=== PATIENT | female | born 1985 | race Hispanic/Latino ===

== ENCOUNTER 2017-08-07 22:35 | Emergency (ER) | payer OTHER ==
[2017-08-07 23:36] LABS: Basophils % (Auto) 0.7 % (0.0-1.8); Eosinophils # (Auto) 0.5 K/mm3 (0.0-0.4); Eosinophils % (Auto) 8.9 % (0.0-4.3); Hematocrit 47.5 % (30.3-42.9); Lymphocytes # (Auto) 1.7 K/mm3 (1.2-5.4); Lymphocytes % (Auto) 31.4 % (13.4-35.0); Mean Corpuscular HGB Conc 34 % (30-34); Mean Corpuscular Hemoglobin 30 pg (28-32); Mean Corpuscular Volume 89 fl (79-97); Monocytes # (Auto) 0.5 K/mm3 (0.0-0.8); Monocytes % (Auto) 8.6 % (0.0-7.3); Platelet Count 128 K/mm3 (140-440); Red Blood Count 5.34 M/mm3 (3.65-5.03); Red Cell Distribution Width 13.4 % (13.2-15.2)
[2017-08-08 00:04] LABS: BUN/Creatinine Ratio 8; Blood Urea Nitrogen 4 mg/dL (7-17); Calcium 8.8 mg/dL (8.4-10.2); Hemolysis Index 29
[2017-08-08] MEDS ORDERED: NACL 0.9% 1000 ML 1,000 ML IV ONE (07:03)
[2017-08-08] MEDS ORDERED: ZOFRAN IV ONE (07:03)
--- NOTE | 2017-08-08 07:06 | Emergency Department Report ---
ED Abdominal Pain HPI - General Chief Complaint: Nausea/Vomiting/Diarrhea Stated Complaint: VOMITTING NAUSEA Time Seen by Provider: 08/08/17 06:59 Source: patient Mode of arrival: Ambulatory Limitations: No Limitations - History of Present Illness Initial Comments: Patient is 32 years old female with no significant past medical history. Patient presented to the ER complaining off nausea vomiting, unable to keep anything down for the last 2-3 days. Patient stated that she had mild left lower quadrant abdominal pain. Patient denied any fever or diarrhea. MD Complaint: abdominal pain Location: LLQ Radiation: none Migration to: no migration Severity: mild Severity scale (0 -10): 2 Quality: cramping Consistency: intermittent Associated Symptoms: nausea, vomiting. denies: diarrhea, chills, constipation, dysuria - Related Data Allergies Allergy/AdvReac Type Severity Reaction Status Date / Time Sulfa (Sulfonamide Allergy Rash Verified 08/07/17 23:15 Antibiotics) ED Review of Systems ROS: Stated complaint: VOMITTING NAUSEA Other details as noted in HPI Comment: All other systems reviewed and negative Constitutional: denies: chills, fever Respiratory: denies: cough, orthopnea, shortness of breath, SOB with exertion Cardiovascular: denies: chest pain, palpitations, dyspnea on exertion, edema Gastrointestinal: abdominal pain, nausea, vomiting. denies: diarrhea, constipation, hematemesis, melena, hematochezia Genitourinary: urgency, dysuria, frequency. denies: discharge Musculoskeletal: denies: back pain ED Past Medical Hx - Past Medical History Previous Medical History?: No - Surgical History Past Surgical History?: Yes Additional Surgical History: x2. tonsillectomy - Social History Smoking Status: Current Every Day Smoker Substance Use Type: Methamphetamines ED Physical Exam - General Limitations: No Limitations General appearance: alert, in no apparent distress - Head Head exam: Present: atraumatic, normocephalic, normal inspection - Eye Eye exam: Present: normal appearance - ENT ENT exam: Present: normal exam, normal orophraynx, mucous membranes dry - Neck Neck exam: Present: normal inspection, full ROM. Absent: tenderness, meningismus, lymphadenopathy, thyromegaly - Respiratory Respiratory exam: Present: normal lung sounds bilaterally. Absent: respiratory distress, wheezes, rales, rhonchi, chest wall tenderness, accessory muscle use, decreased breath sounds, prolonged expiratory - Cardiovascular Cardiovascular Exam: Present: regular rate, normal rhythm, normal heart sounds - GI/Abdominal GI/Abdominal exam: Present: soft, normal bowel sounds. Absent: distended, tenderness, guarding, rebound, rigid, organomegaly, mass, bruit, pulsatile mass - Extremities Exam Extremities exam: Present: normal inspection, full ROM, normal capillary refill - Back Exam Back exam: Present: normal inspection, full ROM. Absent: tenderness, CVA tenderness (R), CVA tenderness (L), muscle spasm, paraspinal tenderness, vertebral tenderness - Neurological Exam Neurological exam: Present: alert, oriented X3, CN II-XII intact, normal gait - Skin Skin exam: Present: warm, dry, intact ED Course Vital Signs 08/07/17 08/08/17 08/08/17 22:40 03:00 03:10 Temperature 98.3 F 98.4 F Pulse Rate 94 H 73 Respiratory 18 18 Rate Blood Pressure 129/97 126/82 Blood Pressure 128/86 [Left] O2 Sat by Pulse 95 99 99 Oximetry 08/08/17 08/08/17 08/08/17 04:00 05:00 06:00 Temperature Pulse Rate Respiratory Rate Blood Pressure 115/79 119/82 113/78 Blood Pressure [Left] O2 Sat by Pulse 98 98 99 Oximetry ED Medical Decision Making - Lab Data Result diagrams: 08/07/17 23:19 08/07/17 23:19 Critical care attestation.: If time is entered above; I have spent that time in minutes in the direct care of this critically ill patient, excluding procedure time. ED Disposition Clinical Impression: Vomiting, UTI (urinary tract infection), Dehydration, Substance abuse Disposition: -01 TO HOME OR SELFCARE Is pt being admited?: No Condition: Stable Instructions: Urinary Tract Infection in Women (ED), Methamphetamine Abuse (ED) Referrals: PRIMARY CARE, [Primary Care Provider] - 3-5 Days
[2017-08-08 08:25] LABS: Bacteria,Urine 1+ /HPF (Negative); Benzodiazepines Screen,Urine PRESUMPTIVE NEGATIVE; Bilirubin,Urine NEG (Negative); Blood,Urine NEG (Negative); Cannabinoid Screen,Urine PRESUMPTIVE NEGATIVE; Cocaine Screen,Urine PRESUMPTIVE NEGATIVE; Color,Urine Amber (Yellow); Methadone Screen,Urine PRESUMPTIVE NEGATIVE; Mucus,Urine FEW /HPF; Opiate Screen,Urine PRESUMPTIVE NEGATIVE; Protein,Urine <15 mg/dL mg/dL (Negative)
[2017-08-08] MEDS ORDERED: REGLAN IV ONE (08:41)
[2017-08-08] MEDS ORDERED: REGLAN IV PRN (08:41)
[2017-08-08 08:49] LABS: Amphetamine Screen,Urine PRESUMPTIVE POSITIVE
[2017-08-08 10:10] VITALS: BP 109/68
== END 2017-08-08 10:10 | disposition home or self-care (01) ==
LOC: ED 22:35
DX: N39.0 Urinary tract infection, site not specified (principal); R11.10 Vomiting, unspecified; F19.10 Other psychoactive substance abuse, uncomplicated; F17.200 Nicotine dependence, unspecified, uncomplicated
CPT/HCPCS: 36415; 80048; 80307; 81001; 84703; 85025; 96361; 96374; 96375; 99283; J2405; J2765; J7030

== ENCOUNTER 2017-08-08 17:53 | Emergency (ER) | payer SELFPAY ==
[2017-08-08 18:24] VITALS: BP 114/80
[2017-08-08] MEDS ORDERED: NACL 0.9% 1000 ML 1,000 ML ONE (19:21)
[2017-08-08] MEDS ORDERED: NACL 0.9% 1000 ML 1,000 ML IV ONE (19:25)
== END 2017-08-08 19:45 | disposition left against medical advice (07) ==
LOC: ED 17:53
DX: R10.9 Unspecified abdominal pain (principal); R11.2 Nausea with vomiting, unspecified; Z87.891 Personal history of nicotine dependence; Z53.21 Procedure and treatment not carried out due to patient leaving prior to being seen by health care provider
CPT/HCPCS: J7030

== ENCOUNTER 2017-08-13 22:37 | Inpatient (IN) | payer OTHER ==
[2017-08-13] MEDS ORDERED: ASPIRIN PO ONE (22:52)
[2017-08-13 23:20] LABS: Basophils # (Auto) 0.1 K/mm3 (0.0-0.1); Basophils % (Auto) 1.2 % (0.0-1.8); Eosinophils # (Auto) 0.3 K/mm3 (0.0-0.4); Eosinophils % (Auto) 4.5 % (0.0-4.3); Hematocrit 44.5 % (30.3-42.9); Hemoglobin 15.4 gm/dl (10.1-14.3); Lymphocytes # (Auto) 2.6 K/mm3 (1.2-5.4); Lymphocytes % (Auto) 40.3 % (13.4-35.0); Mean Corpuscular HGB Conc 35 % (30-34); Mean Corpuscular Hemoglobin 30 pg (28-32); Mean Corpuscular Volume 85 fl (79-97); Monocytes # (Auto) 0.6 K/mm3 (0.0-0.8); Monocytes % (Auto) 9.3 % (0.0-7.3); Platelet Count 188 K/mm3 (140-440); Red Blood Count 5.21 M/mm3 (3.65-5.03)
[2017-08-13 23:51] LABS: BUN/Creatinine Ratio 6; Blood Urea Nitrogen 3 mg/dL (7-17); Hemolysis Index 11
[2017-08-14] MEDS ORDERED: NACL 0.9% 1000 ML 1,000 ML IV ONE (01:55)
[2017-08-14] MEDS ORDERED: ZOFRAN IV ONE ×2 (01:55→04:56)
[2017-08-14] MEDS ORDERED: TORADOL IV ONE (01:55)
[2017-08-14] MEDS ORDERED: MORPHINE IV ONE ×2 (01:55→04:54)
[2017-08-14] MEDS ORDERED: PEPCID IV ONE (01:55)
--- NOTE | 2017-08-14 02:27 | Emergency Department Report ---
ED N/V/D HPI - General Chief complaint: Chest Pain Stated complaint: N/V; CP Time Seen by Provider: 08/14/17 01:54 Source: patient, EMS, old records reviewed Mode of arrival: Ambulatory Limitations: No Limitations - History of Present Illness Initial comments: 32-year-old female with a past medical history of "kidney problems" and previous 2 presents to the hospital with complaints of nausea, vomiting, by mouth tolerance, and abdominal pain. Patient was seen and evaluated here on August 08 same symptoms. She was discharged with a diagnosis UTI and placed on Cipro and Zofran. No CT imaging performed. UDS was positive for amphetamines. Patient filled the antibiotic but was unable to afford the Zofran. Patient tried to take the Cipro but continued to vomit and was unable to keep these down. Patient now complains of headache, left-sided chest discomfort, weakness and fatigue. No fever, diarrhea, melena, or hematochezia reported. Pain overall rate is 9/10 in intensity and pain worse with palpation. Patient admits to occasional methamphetamine use but denies alcohol use or history of hepatitis. Last IV meth use was several months ago and pt denies sharing needles - Related Data Previous Rx's Medication Instructions Recorded Last Taken Type Ciprofloxacin HCl [Ciprofloxacin 500 mg PO Q12H #14 tab 08/08/17 Unknown Rx TAB] Ondansetron [Zofran Odt] 4 mg PO Q8HR PRN #14 tab.rapdis 08/08/17 Unknown Rx Allergies Allergy/AdvReac Type Severity Reaction Status Date / Time Sulfa (Sulfonamide Allergy Rash Verified 08/07/17 23:15 Antibiotics) ED Review of Systems ROS: Stated complaint: N/V; CP Other details as noted in HPI Comment: All other systems reviewed and negative ED Past Medical Hx - Past Medical History Previous Medical History?: Yes Additional medical history: kidney pblms - Surgical History Past Surgical History?: Yes Additional Surgical History: x2. tonsillectomy - Social History Smoking Status: Current Every Day Smoker Substance Use Type: None - Medications Home Medications: Home Medications Medication Instructions Recorded Confirmed Last Taken Type Ciprofloxacin HCl [Ciprofloxacin 500 mg PO Q12H #14 tab 08/08/17 Unknown Rx TAB] Ondansetron [Zofran Odt] 4 mg PO Q8HR PRN #14 tab.rapdis 08/08/17 Unknown Rx ED Physical Exam - General Limitations: No Limitations - Other Other exam information: General: No limitations, patient is alert in no acute distress Head exam: Atraumatic, normocephalic Eyes exam: Normal appearance, pupils equal reactive to light,mildly icteric sclera ENT: Moist mucous membranes Neck exam: Normal inspection, full range of motion, no meningismus nontender Respiratory exam: Clear to auscultation bilateral, no wheezes, rales, crackles Cardiovascular: Normal rate and rhythm, normal heart sounds Abdomen: Soft, nondistended, right upper quadrant, epigastric, suprapubic tenderness on palpation. Normal bowel sounds. No rebound or guarding Extremity: Full range of motion normal inspection no deformity Back: Normal Inspection, full range of motion, no tenderness Neurologic: Alert, oriented x3, cranial nerves intact, no motor or sensory deficit Psychiatric: normal affect, normal mood Skin: Warm, dry, intact ED Course Vital Signs 08/13/17 08/14/17 08/14/17 22:37 01:38 03:24 Temperature 99.3 F 99.1 F Pulse Rate 100 H 84 Respiratory 14 12 16 Rate Blood Pressure 122/86 Blood Pressure 105/63 [Right] O2 Sat by Pulse 98 97 98 Oximetry - Consultations Consultation #1: 08/14/17 04:47 case d/w Dr Soniya pantoja (GI) will consult. ED Medical Decision Making - Lab Data Result diagrams: 08/13/17 22:58 08/13/17 22:58 Lab Results 08/13/17 08/13/17 08/13/17 Range/Units 22:58 22:58 22:58 WBC 6.5 (4.5-11.0) K/mm3 RBC 5.21 H (3.65-5.03) M/mm3 Hgb 15.4 H (10.1-14.3) gm/dl Hct 44.5 H (30.3-42.9) % MCV 85 (79-97) fl MCH 30 (28-32) pg MCHC 35 H (30-34) % RDW 14.0 (13.2-15.2) % Plt Count 188 (140-440) K/mm3 Lymph % (Auto) 40.3 H (13.4-35.0) % [place] % (Auto) 9.3 H (0.0-7.3) % Eos % (Auto) 4.5 H (0.0-4.3) % Baso % (Auto) 1.2 (0.0-1.8) % Lymph # 2.6 (1.2-5.4) K/mm3 [place] # 0.6 (0.0-0.8) K/mm3 Eos # 0.3 (0.0-0.4) K/mm3 Baso # 0.1 (0.0-0.1) K/mm3 Seg Neutrophils % 44.7 (40.0-70.0) % Seg Neutrophils # 2.9 (1.8-7.7) K/mm3 Sodium 133 L (137-145) mmol/L Potassium 3.5 L (3.6-5.0) mmol/L Chloride 93.7 L (98-107) mmol/L Carbon Dioxide 27 (22-30) mmol/L Anion Gap 16 mmol/L BUN 3 L (7-17) mg/dL Creatinine 0.5 L (0.7-1.2) mg/dL Estimated GFR > 60 ml/min BUN/Creatinine Ratio 6 % Glucose 106 H (65-100) mg/dL Calcium 9.0 (8.4-10.2) mg/dL Magnesium (1.7-2.3) mg/dL Total Bilirubin (0.1-1.2) mg/dL Direct Bilirubin (0-0.2) mg/dL Indirect Bilirubin mg/dL AST (5-40) units/L ALT (7-56) units/L Alkaline Phosphatase (35-129) units/L Troponin T < 0.010 (0.00-0.029) ng/mL Total Protein (6.3-8.2) g/dL Albumin (3.9-5) g/dL Albumin/Globulin Ratio % Lipase (13-60) units/L HCG, Qual Negative (Negative) Urine Color (Yellow) Urine Turbidity (Clear) Urine pH (5.0-7.0) Ur Specific [place] (1.003-1.030) Urine Protein (Negative) mg/dL Urine Glucose (UA) (Negative) mg/dL Urine Ketones (Negative) mg/dL Urine Blood (Negative) Urine Nitrite (Negative) Ur Reducing Substances Urine Bilirubin (Negative) Urine Ictotest (Negative) Urine Urobilinogen (<2.0) mg/dL Ur Leukocyte Esterase (Negative) Urine WBC (Auto) (0.0-6.0) /HPF Urine RBC (Auto) (0.0-6.0) /HPF U Epithel Cells (Auto) (0-13.0) /HPF Urine Mucus /HPF Hepatitis A IgM Ab (NonReactive) Hep Bs Antigen (Negative) Hep B Core IgM Ab (NonReactive) Hepatitis C Antibody (NonReactive) 08/14/17 08/14/17 08/14/17 Range/Units 01:30 01:30 01:30 WBC (4.5-11.0) K/mm3 RBC (3.65-5.03) M/mm3 Hgb (10.1-14.3) gm/dl Hct (30.3-42.9) % MCV (79-97) fl MCH (28-32) pg MCHC (30-34) % RDW (13.2-15.2) % Plt Count (140-440) K/mm3 Lymph % (Auto) (13.4-35.0) % [place] % (Auto) (0.0-7.3) % Eos % (Auto) (0.0-4.3) % Baso % (Auto) (0.0-1.8) % Lymph # (1.2-5.4) K/mm3 [place] # (0.0-0.8) K/mm3 Eos # (0.0-0.4) K/mm3 Baso # (0.0-0.1) K/mm3 Seg Neutrophils % (40.0-70.0) % Seg Neutrophils # (1.8-7.7) K/mm3 Sodium (137-145) mmol/L Potassium (3.6-5.0) mmol/L Chloride (98-107) mmol/L Carbon Dioxide (22-30) mmol/L Anion Gap mmol/L BUN (7-17) mg/dL Creatinine (0.7-1.2) mg/dL Estimated GFR ml/min BUN/Creatinine Ratio % Glucose (65-100) mg/dL Calcium (8.4-10.2) mg/dL Magnesium 1.90 (1.7-2.3) mg/dL Total Bilirubin 8.20 H (0.1-1.2) mg/dL Direct Bilirubin 6.3 H (0-0.2) mg/dL Indirect Bilirubin 1.9 mg/dL AST 574 H (5-40) units/L ALT 908 H (7-56) units/L Alkaline Phosphatase 225 H (35-129) units/L Troponin T (0.00-0.029) ng/mL Total Protein 5.7 L (6.3-8.2) g/dL Albumin 3.5 L (3.9-5) g/dL Albumin/Globulin Ratio 1.6 % Lipase 14 (13-60) units/L HCG, Qual (Negative) Urine Color (Yellow) Urine Turbidity (Clear) Urine pH (5.0-7.0) Ur Specific [place] (1.003-1.030) Urine Protein (Negative) mg/dL Urine Glucose (UA) (Negative) mg/dL Urine Ketones (Negative) mg/dL Urine Blood (Negative) Urine Nitrite (Negative) Ur Reducing Substances Urine Bilirubin (Negative) Urine Ictotest (Negative) Urine Urobilinogen (<2.0) mg/dL Ur Leukocyte Esterase (Negative) Urine WBC (Auto) (0.0-6.0) /HPF Urine RBC (Auto) (0.0-6.0) /HPF U Epithel Cells (Auto) (0-13.0) /HPF Urine Mucus /HPF Hepatitis A IgM Ab Non-reactive (NonReactive) Hep Bs Antigen Non-reactive (Negative) Hep B Core IgM Ab Non-reactive (NonReactive) Hepatitis C Antibody Reactive A (NonReactive) 08/14/17 08/14/17 Range/Units 01:47 02:22 WBC (4.5-11.0) K/mm3 RBC (3.65-5.03) M/mm3 Hgb (10.1-14.3) gm/dl Hct (30.3-42.9) % MCV (79-97) fl MCH (28-32) pg MCHC (30-34) % RDW (13.2-15.2) % Plt Count (140-440) K/mm3 Lymph % (Auto) (13.4-35.0) % [place] % (Auto) (0.0-7.3) % Eos % (Auto) (0.0-4.3) % Baso % (Auto) (0.0-1.8) % Lymph # (1.2-5.4) K/mm3 [place] # (0.0-0.8) K/mm3 Eos # (0.0-0.4) K/mm3 Baso # (0.0-0.1) K/mm3 Seg Neutrophils % (40.0-70.0) % Seg Neutrophils # (1.8-7.7) K/mm3 Sodium (137-145) mmol/L Potassium (3.6-5.0) mmol/L Chloride (98-107) mmol/L Carbon Dioxide (22-30) mmol/L Anion Gap mmol/L BUN (7-17) mg/dL Creatinine (0.7-1.2) mg/dL Estimated GFR ml/min BUN/Creatinine Ratio % Glucose (65-100) mg/dL Calcium (8.4-10.2) mg/dL Magnesium (1.7-2.3) mg/dL Total Bilirubin (0.1-1.2) mg/dL Direct Bilirubin (0-0.2) mg/dL Indirect Bilirubin mg/dL AST (5-40) units/L ALT (7-56) units/L Alkaline Phosphatase (35-129) units/L Troponin T < 0.010 (0.00-0.029) ng/mL Total Protein (6.3-8.2) g/dL Albumin (3.9-5) g/dL Albumin/Globulin Ratio % Lipase (13-60) units/L HCG, Qual (Negative) Urine Color [place] (Yellow) Urine Turbidity Clear (Clear) Urine pH 5.0 (5.0-7.0) Ur Specific [place] 1.025 (1.003-1.030) Urine Protein 30 mg/dl (Negative) mg/dL Urine Glucose (UA) Neg (Negative) mg/dL Urine Ketones Neg (Negative) mg/dL Urine Blood Sm (Negative) Urine Nitrite Neg (Negative) Ur Reducing Substances Not Reportable Urine Bilirubin Mod (Negative) Urine Ictotest Positive (Negative) Urine Urobilinogen 4.0 (<2.0) mg/dL Ur Leukocyte Esterase Neg (Negative) Urine WBC (Auto) 4.0 (0.0-6.0) /HPF Urine RBC (Auto) 2.0 (0.0-6.0) /HPF U Epithel Cells (Auto) 9.0 (0-13.0) /HPF Urine Mucus 3+ /HPF Hepatitis A IgM Ab (NonReactive) Hep Bs Antigen (Negative) Hep B Core IgM Ab (NonReactive) Hepatitis C Antibody (NonReactive) - EKG Data -: EKG Interpreted by Me EKG shows normal: sinus rhythm, axis (qrs 65), QRS complexes (qrs 81), ST-T waves (no stemi/t inv) Rate: normal (81) - EKG Data When compared to previous EKG there are: previous EKG unavailable - Radiology Data Radiology results: report reviewed CT abdomen and pelvis IV contrast: No acute process in the abdomen and pelvis. Normal appendix. Uncomplicated sigmoid diverticulosis. - Medical Decision Making lft elevation, + hepatitis C (new diagnosis) History of IV drug abuse but denies sharing needles CT abdomen and pelvis unremarkable UA negative for infection Patient treated symptomatically with morphine, Zofran, and saline for hydration Dr. Pantoja GI consulted Mild hypokalemia Decreased compared to previous like secondary to vomiting IV KCl 20 mEq initiated Hospitalist informed of admission - Differential Diagnosis UTI, GERD, gastritis, gastroenteritis, biliary colic, dehydration, appendic Critical Care Time: No Critical care attestation.: If time is entered above; I have spent that time in minutes in the direct care of this critically ill patient, excluding procedure time. ED Disposition Clinical Impression: Elevated LFTs, Vomiting, Abdominal pain, Hepatitis C, Methamphetamine abuse, Hypokalemia Disposition: -09 OP ADMIT IP TO THIS HOSP Is pt being admited?: Yes Condition: Stable Time of Disposition: 04:48 (Dr Lino/hosp)
[2017-08-14 02:56] LABS: Albumin 3.5 g/dL (3.9-5); Bilirubin,Direct 6.3 mg/dL (0-0.2)
[2017-08-14 03:01] LABS: Mucus,Urine 3+ /HPF
[2017-08-14 03:03] LABS: Bilirubin,Urine MOD (Negative); Blood,Urine SM (Negative); Color,Urine Amber (Yellow)
[2017-08-14 03:11] LABS: Ictotest,Urine Positive (Negative)
[2017-08-14 04:03] LABS: Hepatitis A Antibody IgM Non-Reactive (NonReactive); Hepatitis B Core IgM Non-Reactive (NonReactive); Hepatitis B Surface Antigen Non-Reactive (Negative); Hepatitis C Virus Antibody Reactive (NonReactive)
--- NOTE | 2017-08-14 04:21 | Cat Scan Report ---
FINAL REPORT EXAM: CT ABDOMEN PELVIS W CON HISTORY: n,v,abd pain TECHNIQUE: Routine axial imaging was obtained of the abdomen and pelvis following the intravenous injection of 100 cc of Omnipaque 300. Delayed imaging was obtained through the kidneys ureters and bladder. Sagittal and coronal reconstructions were reviewed. FINDINGS: The lung bases reveal minimal dependent atelectasis in both lower lobes. Pleural fluid is not seen. The gallbladder is contracted. The liver, biliary tree, pancreas, spleen, and adrenal glands appear normal. The kidneys enhance normally. There is no evidence of hydronephrosis. The abdominal aorta is normal in caliber. The vascular structures enhance normally. The bowel loops are normal in caliber and course. The appendix is not enlarged. There is no evidence of free fluid or adenopathy. In the pelvis there are multiple uncomplicated sigmoid diverticula. The uterus and bladder appear normal. The skeletal structures are well-maintained IMPRESSION: No acute process in the abdomen and pelvis. Normal appendix. Uncomplicated sigmoid diverticulosis.
[2017-08-14] MEDS ORDERED: NACL 0.9% 1000 ML 1,000 ML ONE (06:02)
[2017-08-14] MEDS: KCL 10MEQ/100ML 10 MEQ/100 ML BAG IV SCH ×2 (06:15→08:06)
--- NOTE | 2017-08-14 09:02 | History and Physical Report ---
History of Present Illness Date of examination: 08/14/17 Date of admission: 08/14/17 07:10 Chief complaint: Nausea and vomiting History of present illness: 32-year-old female with past medical history significant for recurrent UTI, depression, since presented to the emergency department complaining of nausea and recurrent vomiting for one week. She is also complaining periumbilical abdominal pain, pressure-like, 7 out of 10, no alleviating or aggravating factors. Patient was not eating because she also had nausea and vomiting. She is also complaining of left-sided substernal chest pain, 7 out of 10 in intensity, sharp, piercing there was no radiation, associated with palpitation, no shortness of breath. REVIEW OF SYSTEMS: GENERAL: no weight change, no fatigue, no fever HEAD: no head ache EYES: no blurry vision, no acute visual loss EARS: no hearing loss, no discharge, no earache NOSE: no stuffiness, no sneezing, no discharge MOUTH, THROAT AND NECK: no bleeding gums, no sore throat, no swollen neck CARDIAC: no palpitations, no dyspnea on exertion, no orthopnea, no PND, no edema , no chest pain RESPIRATORY: no shortness of breath, no wheeze, no cough, no sputum, no hemoptysis, no asthma GI: As stated in the HPI. URINARY: Itching around the genital area. MUSCULOSKELETAL: no muscle weakness, no pain, no joint stiffness NEUROLOGIC: no loss of sensation/numbness, no tingling, no tremors, no weakness/ paralysis HEMATOLOGIC: no anemia, no easy bruising SKIN: no rashes ENDOCRINE: no heat/cold intolerance, no polyuria, no polydipsia, no thyroid problems, no diabetes PSYCHIATRIC: no anxiety, no depression, no suicidal ideations Past History Past Medical History: other (depression, recurrent UTI) Past Surgical History: , tonsillectomy, Other (tubal ligation) Social history: IV drug use (amphetamine, inject and snort). denies: smoking, alcohol abuse, prescription drug abuse Family history: no significant family history Medications and Allergies Allergies Allergy/AdvReac Type Severity Reaction Status Date / Time Sulfa (Sulfonamide Allergy Rash Verified 08/07/17 23:15 Antibiotics) Home Medications Medication Instructions Recorded Confirmed Last Taken Type Ciprofloxacin HCl [Ciprofloxacin 500 mg PO Q12H #14 tab 08/08/17 Unknown Rx TAB] Ondansetron [Zofran Odt] 4 mg PO Q8HR PRN #14 tab.rapdis 08/08/17 Unknown Rx Active Meds: Active Medications Heparin Sodium (Porcine) (Heparin) 5,000 unit SUB-Q Q12HR CHONG Exam - Physical Exam Narrative exam: Not in cardiopulmonary distress. The patient appeared well nourished and normally developed. Vital signs as documented. Head exam is unremarkable. No scleral icterus . Neck is without jugular venous distension, thyromegaly, or carotid bruits. Lungs are clear to auscultation. Cardiac exam reveals regular rate and Rhythm. First and second heart sounds normal. No murmurs, rubs or gallops. Abdominal exam reveals normal bowel sounds, no masses, no organomegaly and no aortic enlargement. Extremities are nonedematous and both femoral and pedal pulses are normal. WEB KNITTER: Alert and oriented 3. No focal weakness. - Constitutional Vitals: Temp Pulse Resp BP Pulse Ox 97.3 F L 55 L 19 96/52 99 08/14/17 08:48 08/14/17 08:48 08/14/17 08:48 08/14/17 08:48 08/14/17 08:48 Results - Labs CBC & Chem 7: 08/13/17 22:58 08/13/17 22:58 Labs: Laboratory Last Values WBC 6.5 K/mm3 (4.5-11.0) 08/13/17 22:58 RBC 5.21 M/mm3 (3.65-5.03) H 08/13/17 22:58 Hgb 15.4 gm/dl (10.1-14.3) H 08/13/17 22:58 Hct 44.5 % (30.3-42.9) H 08/13/17 22:58 MCV 85 fl (79-97) 08/13/17 22:58 MCH 30 pg (28-32) 08/13/17 22:58 MCHC 35 % (30-34) H 08/13/17 22:58 RDW 14.0 % (13.2-15.2) 08/13/17 22:58 Plt Count 188 K/mm3 (140-440) 08/13/17 22:58 Lymph % (Auto) 40.3 % (13.4-35.0) H 08/13/17 22:58 [place] % (Auto) 9.3 % (0.0-7.3) H 08/13/17 22:58 Eos % (Auto) 4.5 % (0.0-4.3) H 08/13/17 22:58 Baso % (Auto) 1.2 % (0.0-1.8) 08/13/17 22:58 Lymph # 2.6 K/mm3 (1.2-5.4) 08/13/17 22:58 [place] # 0.6 K/mm3 (0.0-0.8) 08/13/17 22:58 Eos # 0.3 K/mm3 (0.0-0.4) 08/13/17 22:58 Baso # 0.1 K/mm3 (0.0-0.1) 08/13/17 22:58 Seg Neutrophils % 44.7 % (40.0-70.0) 08/13/17 22:58 Seg Neutrophils # 2.9 K/mm3 (1.8-7.7) 08/13/17 22:58 Sodium 133 mmol/L (137-145) L 08/13/17 22:58 Potassium 3.5 mmol/L (3.6-5.0) L 08/13/17 22:58 Chloride 93.7 mmol/L (98-107) L 08/13/17 22:58 Carbon Dioxide 27 mmol/L (22-30) 08/13/17 22:58 Anion Gap 16 mmol/L 08/13/17 22:58 BUN 3 mg/dL (7-17) L 08/13/17 22:58 Creatinine 0.5 mg/dL (0.7-1.2) L 08/13/17 22:58 Estimated GFR > 60 ml/min 08/13/17 22:58 BUN/Creatinine Ratio 6 % 08/13/17 22:58 Glucose 106 mg/dL (65-100) H 08/13/17 22:58 Calcium 9.0 mg/dL (8.4-10.2) 08/13/17 22:58 Magnesium 1.90 mg/dL (1.7-2.3) 08/14/17 01:30 Total Bilirubin 8.20 mg/dL (0.1-1.2) H 08/14/17 01:30 Direct Bilirubin 6.3 mg/dL (0-0.2) H 08/14/17 01:30 Indirect Bilirubin 1.9 mg/dL 08/14/17 01:30 AST 574 units/L (5-40) H 08/14/17 01:30 ALT 908 units/L (7-56) H 08/14/17 01:30 Alkaline Phosphatase 225 units/L (35-129) H 08/14/17 01:30 Troponin T < 0.010 ng/mL (0.00-0.029) 08/14/17 04:45 Total Protein 5.7 g/dL (6.3-8.2) L 08/14/17 01:30 Albumin 3.5 g/dL (3.9-5) L 08/14/17 01:30 Albumin/Globulin Ratio 1.6 % 08/14/17 01:30 Lipase 14 units/L (13-60) 08/14/17 01:30 HCG, Qual Negative (Negative) 08/13/17 22:58 Urine Color [place] (Yellow) 08/14/17 02:22 Urine Turbidity Clear (Clear) 08/14/17 02:22 Urine pH 5.0 (5.0-7.0) 08/14/17 02:22 Ur Specific [place] 1.025 (1.003-1.030) 08/14/17 02:22 Urine Protein 30 mg/dl mg/dL (Negative) 08/14/17 02:22 Urine Glucose (UA) Neg mg/dL (Negative) 08/14/17 02:22 Urine Ketones Neg mg/dL (Negative) 08/14/17 02:22 Urine Blood Sm (Negative) 08/14/17 02:22 Urine Nitrite Neg (Negative) 08/14/17 02:22 Ur Reducing Substances Not Reportable 08/14/17 02:22 Urine Bilirubin Mod (Negative) 08/14/17 02:22 Urine Ictotest Positive (Negative) 08/14/17 02:22 Urine Urobilinogen 4.0 mg/dL (<2.0) 08/14/17 02:22 Ur Leukocyte Esterase Neg (Negative) 08/14/17 02:22 Urine WBC (Auto) 4.0 /HPF (0.0-6.0) 08/14/17 02:22 Urine RBC (Auto) 2.0 /HPF (0.0-6.0) 08/14/17 02:22 U Epithel Cells (Auto) 9.0 /HPF (0-13.0) 08/14/17 02:22 Urine Mucus 3+ /HPF 08/14/17 02:22 Hepatitis A IgM Ab Non-reactive (NonReactive) 08/14/17 01:30 Hep Bs Antigen Non-reactive (Negative) 08/14/17 01:30 Hep B Core IgM Ab Non-reactive (NonReactive) 08/14/17 01:30 Hepatitis C Antibody Reactive (NonReactive) A 08/14/17 01:30 Assessment and Plan Assessment and plan: 32-year-old female was presented for nausea and vomiting. CT of the abdomen was unremarkable, patient was due for hepatitis C antibody. Hepatitis C infection Recurrent nausea and vomiting Vaginal candidiasis Homeless ness Hyperkalemia, hyponatremia - Patient is on IV fluids, symptomatic treatment - Diflucan, potassium replacement DVT prophylaxis - On Lovenox Disposition - Possible DC tomorrow if tolerate diet Advance Directives: Yes VTE prophylaxis?: Chemical Plan of care discussed with patient/family: Yes
[2017-08-14] MEDS: ZOFRAN IV PRN ×3 (09:51→21:30)
[2017-08-14] MEDS ORDERED: HEPARIN SUB-Q SCH (10:00)
--- NOTE | 2017-08-14 11:27 | Gastroenterology Consultation ---
<BHAVIN YI - Last Filed: 08/14/17 11:28> History of Present Illness - Reason for Consult Consult date: 08/14/17 elevated LFTS, N/V Requesting physician: [facility] SHARMA - History of Present Illness Mr Neves is a 32 y/o female admitted with a one week hx of N/V, no diarrhea and abdominal pain that is intermittent. She states she is unable to tolerate even liquids. On admission, LFTS were elevated, TB >8. She denies ETOH use, but endorses past illicit drug use. No family hx of liver disease. Hepatitis c TRISTEN positive. She was recently seen in ED for N/V and diagnosed with UTI, but did not take the medications. Past History Past Medical History: other ("kidney problems") Past Surgical History: , tonsillectomy Social history: lives with family, smoking Family history: no significant family history Medications and Allergies Allergies Allergy/AdvReac Type Severity Reaction Status Date / Time Sulfa (Sulfonamide Allergy Rash Verified 08/07/17 23:15 Antibiotics) Home Medications Medication Instructions Recorded Confirmed Last Taken Type Ciprofloxacin HCl [Ciprofloxacin 500 mg PO Q12H #14 tab 08/08/17 Unknown Rx TAB] Ondansetron [Zofran Odt] 4 mg PO Q8HR PRN #14 tab.rapdis 08/08/17 Unknown Rx Active Meds: Active Medications Heparin Sodium (Porcine) (Heparin) 5,000 unit SUB-Q Q12HR CHONG Dextrose/Sodium Chloride (D5ns) 1,000 mls @ 75 mls/hr IV DIRECT CHONG Morphine Sulfate (Morphine) 2 mg IV Q4H PRN PRN Reason: Pain, Moderate (4-6) Ondansetron HCl (Zofran) 4 mg IV Q4H PRN PRN Reason: N/V unrelieved by Valery Last Admin: 08/14/17 09:51 Dose: 4 mg Review of Systems - Review of Systems All systems: negative Constitutional: fatigue Gastrointestinal: abdominal pain, nausea, vomiting Exam - Constitutional Vital Signs: Temp Pulse Resp BP Pulse Ox 97.3 F L 55 L 19 96/52 99 08/14/17 08:48 08/14/17 08:48 08/14/17 08:48 08/14/17 08:48 08/14/17 08:48 General appearance: no acute distress - EENT Eyes: EOM intact ENT: hearing intact - Neck Neck: supple - Respiratory Respiratory: bilateral: CTA - Cardiovascular Rhythm: regular Heart Sounds: Present: S1 & S2 Extremities: Full ROM - Gastrointestinal General gastrointestinal: Present: soft, tender (mild TTP periumbilical area), normal bowel sounds - Integumentary Integumentary: Present: warm, dry - Neurologic Neurological: alert and oriented x3 - Labs CBC & Chem 7: 08/13/17 22:58 08/13/17 22:58 Lab Results: Laboratory Results - last 24 hr 08/13/17 08/13/17 08/13/17 22:58 22:58 22:58 WBC 6.5 RBC 5.21 H Hgb 15.4 H Hct 44.5 H MCV 85 MCH 30 MCHC 35 H RDW 14.0 Plt Count 188 Lymph % (Auto) 40.3 H [place] % (Auto) 9.3 H Eos % (Auto) 4.5 H Baso % (Auto) 1.2 Lymph # 2.6 [place] # 0.6 Eos # 0.3 Baso # 0.1 Seg Neutrophils % 44.7 Seg Neutrophils # 2.9 Sodium 133 L Potassium 3.5 L Chloride 93.7 L Carbon Dioxide 27 Anion Gap 16 BUN 3 L Creatinine 0.5 L Estimated GFR > 60 BUN/Creatinine Ratio 6 Glucose 106 H Calcium 9.0 Magnesium Total Bilirubin Direct Bilirubin Indirect Bilirubin AST ALT Alkaline Phosphatase Troponin T < 0.010 Total Protein Albumin Albumin/Globulin Ratio Lipase HCG, Qual Negative Urine Color Urine Turbidity Urine pH Ur Specific [place] Urine Protein Urine Glucose (UA) Urine Ketones Urine Blood Urine Nitrite Ur Reducing Substances Urine Bilirubin Urine Ictotest Urine Urobilinogen Ur Leukocyte Esterase Urine WBC (Auto) Urine RBC (Auto) U Epithel Cells (Auto) Urine Mucus Hepatitis A IgM Ab Hep Bs Antigen Hep B Core IgM Ab Hepatitis C Antibody 08/14/17 08/14/17 08/14/17 01:30 01:30 01:30 WBC RBC Hgb Hct MCV MCH MCHC RDW Plt Count Lymph % (Auto) [place] % (Auto) Eos % (Auto) Baso % (Auto) Lymph # [place] # Eos # Baso # Seg Neutrophils % Seg Neutrophils # Sodium Potassium Chloride Carbon Dioxide Anion Gap BUN Creatinine Estimated GFR BUN/Creatinine Ratio Glucose Calcium Magnesium 1.90 Total Bilirubin 8.20 H Direct Bilirubin 6.3 H Indirect Bilirubin 1.9 AST 574 H ALT 908 H Alkaline Phosphatase 225 H Troponin T Total Protein 5.7 L Albumin 3.5 L Albumin/Globulin Ratio 1.6 Lipase 14 HCG, Qual Urine Color Urine Turbidity Urine pH Ur Specific [place] Urine Protein Urine Glucose (UA) Urine Ketones Urine Blood Urine Nitrite Ur Reducing Substances Urine Bilirubin Urine Ictotest Urine Urobilinogen Ur Leukocyte Esterase Urine WBC (Auto) Urine RBC (Auto) U Epithel Cells (Auto) Urine Mucus Hepatitis A IgM Ab Non-reactive Hep Bs Antigen Non-reactive Hep B Core IgM Ab Non-reactive Hepatitis C Antibody Reactive A 08/14/17 08/14/17 08/14/17 01:47 02:22 04:45 WBC RBC Hgb Hct MCV MCH MCHC RDW Plt Count Lymph % (Auto) [place] % (Auto) Eos % (Auto) Baso % (Auto) Lymph # [place] # Eos # Baso # Seg Neutrophils % Seg Neutrophils # Sodium Potassium Chloride Carbon Dioxide Anion Gap BUN Creatinine Estimated GFR BUN/Creatinine Ratio Glucose Calcium Magnesium Total Bilirubin Direct Bilirubin Indirect Bilirubin AST ALT Alkaline Phosphatase Troponin T < 0.010 < 0.010 Total Protein Albumin Albumin/Globulin Ratio Lipase HCG, Qual Urine Color [place] Urine Turbidity Clear Urine pH 5.0 Ur Specific [place] 1.025 Urine Protein 30 mg/dl Urine Glucose (UA) Neg Urine Ketones Neg Urine Blood Sm Urine Nitrite Neg Ur Reducing Substances Not Reportable Urine Bilirubin Mod Urine Ictotest Positive Urine Urobilinogen 4.0 Ur Leukocyte Esterase Neg Urine WBC (Auto) 4.0 Urine RBC (Auto) 2.0 U Epithel Cells (Auto) 9.0 Urine Mucus 3+ Hepatitis A IgM Ab Hep Bs Antigen Hep B Core IgM Ab Hepatitis C Antibody Assessment and Plan 1.N/V, abdominal pain 2. Elevated LFTS 3. Hepatitis C TRISTEN positive -TB >8, ast 574/alt 908, ALP 225. Pt denies ETOH use. -CT with no acute process -Check US gallbladder -SHAN, anti-smooth muscle TRISTEN -ok for clear liquids -Further recommendations to follow. <KEL CAMACHO - Last Filed: 08/14/17 19:43> Medications and Allergies Active Meds: Active Medications Enoxaparin Sodium (Lovenox) 40 mg SUB-Q QDAY@2200 CHONG Dextrose/Sodium Chloride (D5ns) 1,000 mls @ 75 mls/hr IV DIRECT CHONG Last Admin: 08/14/17 11:49 Dose: 75 mls/hr Morphine Sulfate (Morphine) 2 mg IV Q4H PRN PRN Reason: Pain, Moderate (4-6) Last Admin: 08/14/17 18:34 Dose: 2 mg Ondansetron HCl (Zofran) 4 mg IV Q4H PRN PRN Reason: N/V unrelieved by Reglan Last Admin: 08/14/17 15:25 Dose: 4 mg Zolpidem Tartrate (Ambien) 5 mg PO QHS PRN PRN Reason: Sleep Exam - Constitutional Vital Signs: Temp Pulse Resp BP Pulse Ox 97.9 F 55 L 19 100/64 99 08/14/17 10:58 08/14/17 08:48 08/14/17 10:58 08/14/17 10:58 08/14/17 08:48 - Labs CBC & Chem 7: 08/13/17 22:58 08/13/17 22:58 Lab Results: Laboratory Results - last 24 hr 08/13/17 08/13/17 08/13/17 22:58 22:58 22:58 WBC 6.5 RBC 5.21 H Hgb 15.4 H Hct 44.5 H MCV 85 MCH 30 MCHC 35 H RDW 14.0 Plt Count 188 Lymph % (Auto) 40.3 H [place] % (Auto) 9.3 H Eos % (Auto) 4.5 H Baso % (Auto) 1.2 Lymph # 2.6 [place] # 0.6 Eos # 0.3 Baso # 0.1 Seg Neutrophils % 44.7 Seg Neutrophils # 2.9 Sodium 133 L Potassium 3.5 L Chloride 93.7 L Carbon Dioxide 27 Anion Gap 16 BUN 3 L Creatinine 0.5 L Estimated GFR > 60 BUN/Creatinine Ratio 6 Glucose 106 H Calcium 9.0 Magnesium Total Bilirubin Direct Bilirubin Indirect Bilirubin AST ALT Alkaline Phosphatase Troponin T < 0.010 Total Protein Albumin Albumin/Globulin Ratio Lipase HCG, Qual Negative Urine Color Urine Turbidity Urine pH Ur Specific [place] Urine Protein Urine Glucose (UA) Urine Ketones Urine Blood Urine Nitrite Ur Reducing Substances Urine Bilirubin Urine Ictotest Urine Urobilinogen Ur Leukocyte Esterase Urine WBC (Auto) Urine RBC (Auto) U Epithel Cells (Auto) Urine Mucus Urine Opiates Screen Urine Methadone Screen Ur Barbiturates Screen Ur Phencyclidine Scrn Ur Amphetamines Screen U Benzodiazepines Scrn Urine Cocaine Screen U Marijuana (THC) Screen Drugs of Abuse Note Hepatitis A IgM Ab Hep Bs Antigen Hep B Core IgM Ab Hepatitis C Antibody 08/14/17 08/14/17 08/14/17 01:30 01:30 01:30 WBC RBC Hgb Hct MCV MCH MCHC RDW Plt Count Lymph % (Auto) [place] % (Auto) Eos % (Auto) Baso % (Auto) Lymph # [place] # Eos # Baso # Seg Neutrophils % Seg Neutrophils # Sodium Potassium Chloride Carbon Dioxide Anion Gap BUN Creatinine Estimated GFR BUN/Creatinine Ratio Glucose Calcium Magnesium 1.90 Total Bilirubin 8.20 H Direct Bilirubin 6.3 H Indirect Bilirubin 1.9 AST 574 H ALT 908 H Alkaline Phosphatase 225 H Troponin T Total Protein 5.7 L Albumin 3.5 L Albumin/Globulin Ratio 1.6 Lipase 14 HCG, Qual Urine Color Urine Turbidity Urine pH Ur Specific [place] Urine Protein Urine Glucose (UA) Urine Ketones Urine Blood Urine Nitrite Ur Reducing Substances Urine Bilirubin Urine Ictotest Urine Urobilinogen Ur Leukocyte Esterase Urine WBC (Auto) Urine RBC (Auto) U Epithel Cells (Auto) Urine Mucus Urine Opiates Screen Urine Methadone Screen Ur Barbiturates Screen Ur Phencyclidine Scrn Ur Amphetamines Screen U Benzodiazepines Scrn Urine Cocaine Screen U Marijuana (THC) Screen Drugs of Abuse Note Hepatitis A IgM Ab Non-reactive Hep Bs Antigen Non-reactive Hep B Core IgM Ab Non-reactive Hepatitis C Antibody Reactive A 08/14/17 08/14/17 08/14/17 01:47 02:22 04:45 WBC RBC Hgb Hct MCV MCH MCHC RDW Plt Count Lymph % (Auto) [place] % (Auto) Eos % (Auto) Baso % (Auto) Lymph # [place] # Eos # Baso # Seg Neutrophils % Seg Neutrophils # Sodium Potassium Chloride Carbon Dioxide Anion Gap BUN Creatinine Estimated GFR BUN/Creatinine Ratio Glucose Calcium Magnesium Total Bilirubin Direct Bilirubin Indirect Bilirubin AST ALT Alkaline Phosphatase Troponin T < 0.010 < 0.010 Total Protein Albumin Albumin/Globulin Ratio Lipase HCG, Qual Urine Color [place] Urine Turbidity Clear Urine pH 5.0 Ur Specific [place] 1.025 Urine Protein 30 mg/dl Urine Glucose (UA) Neg Urine Ketones Neg Urine Blood Sm Urine Nitrite Neg Ur Reducing Substances Not Reportable Urine Bilirubin Mod Urine Ictotest Positive Urine Urobilinogen 4.0 Ur Leukocyte Esterase Neg Urine WBC (Auto) 4.0 Urine RBC (Auto) 2.0 U Epithel Cells (Auto) 9.0 Urine Mucus 3+ Urine Opiates Screen Urine Methadone Screen Ur Barbiturates Screen Ur Phencyclidine Scrn Ur Amphetamines Screen U Benzodiazepines Scrn Urine Cocaine Screen U Marijuana (THC) Screen Drugs of Abuse Note Hepatitis A IgM Ab Hep Bs Antigen Hep B Core IgM Ab Hepatitis C Antibody 08/14/17 16:55 WBC RBC Hgb Hct MCV MCH MCHC RDW Plt Count Lymph % (Auto) [place] % (Auto) Eos % (Auto) Baso % (Auto) Lymph # [place] # Eos # Baso # Seg Neutrophils % Seg Neutrophils # Sodium Potassium Chloride Carbon Dioxide Anion Gap BUN Creatinine Estimated GFR BUN/Creatinine Ratio Glucose Calcium Magnesium Total Bilirubin Direct Bilirubin Indirect Bilirubin AST ALT Alkaline Phosphatase Troponin T Total Protein Albumin Albumin/Globulin Ratio Lipase HCG, Qual Urine Color Urine Turbidity Urine pH Ur Specific [place] Urine Protein Urine Glucose (UA) Urine Ketones Urine Blood Urine Nitrite Ur Reducing Substances Urine Bilirubin Urine Ictotest Urine Urobilinogen Ur Leukocyte Esterase Urine WBC (Auto) Urine RBC (Auto) U Epithel Cells (Auto) Urine Mucus Urine Opiates Screen Presumptive negative Urine Methadone Screen Presumptive negative Ur Barbiturates Screen Presumptive negative Ur Phencyclidine Scrn Presumptive negative Ur Amphetamines Screen Presumptive positive U Benzodiazepines Scrn Presumptive negative Urine Cocaine Screen Presumptive positive U Marijuana (THC) Screen Presumptive negative Drugs of Abuse Note Disclamer Hepatitis A IgM Ab Hep Bs Antigen Hep B Core IgM Ab Hepatitis C Antibody Assessment and Plan - Patient Problems (1) Elevated LFTs Current Visit: Yes Status: Acute Plan to address problem: Hepatitis A and B studies are negative. Would worry about drug induced liver injury and autoimmune hepatitis in this setting. May need liver biopsy if not improving with observation. Autoimmune panel sent. Kel Camacho MD (2) Hepatitis C Current Visit: Yes Status: Acute Plan to address problem: Likely chronic and unlikely related to acute elevations of LFTs. (3) Methamphetamine abuse Current Visit: Yes Status: Acute (4) Substance abuse Current Visit: No Status: Acute
[2017-08-14] MEDS: MORPHINE IV PRN ×3 (11:36→23:03)
[2017-08-14] MEDS: D5NS 1,000 ML IV SCH (11:49)
[2017-08-14] MEDS ORDERED: DIFLUCAN PO ONE (12:49)
[2017-08-14] MEDS ORDERED: POTASSIUM CHLORIDE FEEDTUBE ONE (13:39)
[2017-08-14 17:25] LABS: Benzodiazepines Screen,Urine PRESUMPTIVE NEGATIVE; Cannabinoid Screen,Urine PRESUMPTIVE NEGATIVE; Methadone Screen,Urine PRESUMPTIVE NEGATIVE; Opiate Screen,Urine PRESUMPTIVE NEGATIVE
[2017-08-14 17:39] LABS: Amphetamine Screen,Urine PRESUMPTIVE POSITIVE; Cocaine Screen,Urine PRESUMPTIVE POSITIVE
[2017-08-14] MEDS: LOVENOX SUB-Q SCH (21:30)
[2017-08-14] MEDS: AMBIEN PO PRN (21:31)
[2017-08-15] MEDS ORDERED: TYLENOL PO PRN (00:03)
[2017-08-15 05:03] LABS: Alanine Aminotransferase 689 units/L (7-56); Albumin 3.1 g/dL (3.9-5); BUN/Creatinine Ratio 6; Blood Urea Nitrogen 3 mg/dL (7-17); Calcium 7.9 mg/dL (8.4-10.2); Hemolysis Index 9
[2017-08-15] MEDS: ZOFRAN IV PRN ×4 (07:15→23:05)
[2017-08-15] MEDS: MORPHINE IV PRN (07:15)
[2017-08-15] MEDS: D5NS 1,000 ML IV SCH (10:00)
--- NOTE | 2017-08-15 10:36 | Progress Note ---
Assessment and Plan Assessment and plan: 32-year-old female was presented for nausea and vomiting. CT of the abdomen was unremarkable, patient was due for hepatitis C antibody. Patient's urine is positive for cocaine and amphetamine Hepatitis C infection ? Drug-induced hepatitis Polysubstance abuse; counseled about cessation of using cocaine and amphetamine Recurrent nausea and vomiting Vaginal candidiasis Homeless ness Hyperkalemia, hyponatremia - Patient is on IV fluids, symptomatic treatment - We'll advance diet - GI consult appreciated; observation, autoimmune workup, if no improvement will consider biopsy - Diflucan, potassium replacement DVT prophylaxis - On Lovenox Disposition - Will follow GI recommendation. History Interval history: Patient was seen and evaluated this morning, patient didn't have any vomiting but she complains nausea. She is complaining pain. Per her nurse the patient was drinking well and I told her to advance her diet. Hospitalist Physical - Physical exam Narrative exam: Not in cardiopulmonary distress. The patient appeared well nourished and normally developed. Vital signs as documented. Head exam is unremarkable. No scleral icterus . Neck is without jugular venous distension, thyromegaly, or carotid bruits. Lungs are clear to auscultation. Cardiac exam reveals regular rate and Rhythm. First and second heart sounds normal. No murmurs, rubs or gallops. Abdominal exam reveals normal bowel sounds, no masses, no organomegaly and no aortic enlargement. Extremities are nonedematous and both femoral and pedal pulses are normal. ON SITE MANAGER: Alert and oriented 3. No focal weakness. - Constitutional Vitals: Temp Pulse Resp BP Pulse Ox 99.6 F 81 19 104/63 95 08/15/17 07:16 08/15/17 07:16 08/15/17 07:16 08/15/17 07:16 08/15/17 07:16 Results - Labs CBC & Chem 7: 08/13/17 22:58 08/15/17 03:34 Labs: Laboratory Last Values WBC 6.5 K/mm3 (4.5-11.0) 08/13/17 22:58 RBC 5.21 M/mm3 (3.65-5.03) H 08/13/17 22:58 Hgb 15.4 gm/dl (10.1-14.3) H 08/13/17 22:58 Hct 44.5 % (30.3-42.9) H 08/13/17 22:58 MCV 85 fl (79-97) 08/13/17 22:58 MCH 30 pg (28-32) 08/13/17 22:58 MCHC 35 % (30-34) H 08/13/17 22:58 RDW 14.0 % (13.2-15.2) 08/13/17 22:58 Plt Count 188 K/mm3 (140-440) 08/13/17 22:58 Lymph % (Auto) 40.3 % (13.4-35.0) H 08/13/17 22:58 [place] % (Auto) 9.3 % (0.0-7.3) H 08/13/17 22:58 Eos % (Auto) 4.5 % (0.0-4.3) H 08/13/17 22:58 Baso % (Auto) 1.2 % (0.0-1.8) 08/13/17 22:58 Lymph # 2.6 K/mm3 (1.2-5.4) 08/13/17 22:58 [place] # 0.6 K/mm3 (0.0-0.8) 08/13/17 22:58 Eos # 0.3 K/mm3 (0.0-0.4) 08/13/17 22:58 Baso # 0.1 K/mm3 (0.0-0.1) 08/13/17 22:58 Seg Neutrophils % 44.7 % (40.0-70.0) 08/13/17 22:58 Seg Neutrophils # 2.9 K/mm3 (1.8-7.7) 08/13/17 22:58 Sodium 135 mmol/L (137-145) L 08/15/17 03:34 Potassium 4.1 mmol/L (3.6-5.0) 08/15/17 03:34 Chloride 99.7 mmol/L (98-107) 08/15/17 03:34 Carbon Dioxide 26 mmol/L (22-30) 08/15/17 03:34 Anion Gap 13 mmol/L 08/15/17 03:34 BUN 3 mg/dL (7-17) L 08/15/17 03:34 Creatinine 0.5 mg/dL (0.7-1.2) L 08/15/17 03:34 Estimated GFR > 60 ml/min 08/15/17 03:34 BUN/Creatinine Ratio 6 % 08/15/17 03:34 Glucose 86 mg/dL (65-100) 08/15/17 03:34 Calcium 7.9 mg/dL (8.4-10.2) L 08/15/17 03:34 Magnesium 1.90 mg/dL (1.7-2.3) 08/14/17 01:30 Total Bilirubin 7.70 mg/dL (0.1-1.2) H 08/15/17 03:34 Direct Bilirubin 6.3 mg/dL (0-0.2) H 08/14/17 01:30 Indirect Bilirubin 1.9 mg/dL 08/14/17 01:30 AST 600 units/L (5-40) H 08/15/17 03:34 ALT 689 units/L (7-56) H 08/15/17 03:34 Alkaline Phosphatase 180 units/L (35-129) H 08/15/17 03:34 Troponin T < 0.010 ng/mL (0.00-0.029) 08/14/17 04:45 Total Protein 5.1 g/dL (6.3-8.2) L 08/15/17 03:34 Albumin 3.1 g/dL (3.9-5) L 08/15/17 03:34 Albumin/Globulin Ratio 1.6 % 08/15/17 03:34 Lipase 14 units/L (13-60) 08/14/17 01:30 HCG, Qual Negative (Negative) 08/13/17 22:58 Urine Color [place] (Yellow) 08/14/17 02:22 Urine Turbidity Clear (Clear) 08/14/17 02:22 Urine pH 5.0 (5.0-7.0) 08/14/17 02:22 Ur Specific [place] 1.025 (1.003-1.030) 08/14/17 02:22 Urine Protein 30 mg/dl mg/dL (Negative) 08/14/17 02:22 Urine Glucose (UA) Neg mg/dL (Negative) 08/14/17 02:22 Urine Ketones Neg mg/dL (Negative) 08/14/17 02:22 Urine Blood Sm (Negative) 08/14/17 02:22 Urine Nitrite Neg (Negative) 08/14/17 02:22 Ur Reducing Substances Not Reportable 08/14/17 02:22 Urine Bilirubin Mod (Negative) 08/14/17 02:22 Urine Ictotest Positive (Negative) 08/14/17 02:22 Urine Urobilinogen 4.0 mg/dL (<2.0) 08/14/17 02:22 Ur Leukocyte Esterase Neg (Negative) 08/14/17 02:22 Urine WBC (Auto) 4.0 /HPF (0.0-6.0) 08/14/17 02:22 Urine RBC (Auto) 2.0 /HPF (0.0-6.0) 08/14/17 02:22 U Epithel Cells (Auto) 9.0 /HPF (0-13.0) 08/14/17 02:22 Urine Mucus 3+ /HPF 08/14/17 02:22 Urine Opiates Screen Presumptive negative 08/14/17 16:55 Urine Methadone Screen Presumptive negative 08/14/17 16:55 Ur Barbiturates Screen Presumptive negative 08/14/17 16:55 Ur Phencyclidine Scrn Presumptive negative 08/14/17 16:55 Ur Amphetamines Screen Presumptive positive 08/14/17 16:55 U Benzodiazepines Scrn Presumptive negative 08/14/17 16:55 Urine Cocaine Screen Presumptive positive 08/14/17 16:55 U Marijuana (THC) Screen Presumptive negative 08/14/17 16:55 Drugs of Abuse Note Disclamer 08/14/17 16:55 Hepatitis A IgM Ab Non-reactive (NonReactive) 08/14/17 01:30 Hep Bs Antigen Non-reactive (Negative) 08/14/17 01:30 Hep B Core IgM Ab Non-reactive (NonReactive) 08/14/17 01:30 Hepatitis C Antibody Reactive (NonReactive) A 08/14/17 01:30
--- NOTE | 2017-08-15 11:44 | Ultrasound Report ---
RIGHT UPPER QUADRANT ABDOMINAL ULTRASOUND: 08/14/17 07:10:00 CLINICAL: Elevated liver function tests. FINDINGS: High-resolution ultrasound demonstrated a normal liver. Normal hepatic vasculature and inferior vena cava. The gallbladder is contracted with no stones. Normal intrahepatic and extra hepatic bile ducts. The common bile duct measures 2.3 mm diameter. The pancreas was well imaged and normal. Normal upper abdominal aorta. The right kidney is normal and measures 10.4 x 4.8 x 4.7cm. No ascites or mass. IMPRESSION: Normal study with a contracted gallbladder
[2017-08-15] MEDS: PERCOCET 5/325 PO PRN ×2 (12:00→19:36)
--- NOTE | 2017-08-15 12:43 | Gastroenterology Progress Note ---
Assessment and Plan 1. Acute liver injury 2. Jaundice 3. Hep C Ab + 4. Pruritis -unclear etiology of pt's acute liver injury. Hep C Ab positive and in setting of recent IVDU, she may have acute hepatitis c. This can rarely present with liver enzyme elevation that she has. HCV RNA pending. R/o HIV and autoimmune conditions (AMA also checked). trend liver enzymes. No biliary dilatation in imaging. recommend social work evaluation as she is homeless and risks for further drug use following d/c. cont supportive care while awaiting further labs. can try hydroxyzine for pruritis if needed Subjective Date of service: 08/15/17 Principal diagnosis: jaundice, elevated liver enzymes Interval history: pt seen and examined. c/o pruritis. + abd discomfort, slightly better. + nausea, but tolerated po this morning. discussed history with pt in further detail. she admits to IVDU for the past 2 months. she is homeless, she mostly injects meth but unsure about other substances that might have been mixed with drugs. denies alcohol use Objective - Constitutional Vitals: Temp Pulse Resp BP Pulse Ox 99.6 F 81 19 104/63 95 08/15/17 07:16 08/15/17 07:16 08/15/17 07:16 08/15/17 07:16 08/15/17 07:16 General appearance: no acute distress - EENT Eyes: scleral icterus - Respiratory Respiratory effort: normal Respiratory: bilateral: CTA - Cardiovascular Rhythm: regular Heart Sounds: Present: S1 & S2 - Extremities Extremities: No edema - Gastrointestinal General gastrointestinal: Present: soft, non-tender, non-distended - Integumentary Integumentary: Present: clear, warm - Neurologic Neurological: alert and oriented x3 - Psychiatric Psychiatric: appropriate mood/affect - Labs CBC & Chem 7: 08/13/17 22:58 08/15/17 03:34 Labs: Laboratory Results - last 24 hr 08/14/17 08/15/17 16:55 03:34 Sodium 135 L Potassium 4.1 Chloride 99.7 Carbon Dioxide 26 Anion Gap 13 BUN 3 L Creatinine 0.5 L Estimated GFR > 60 BUN/Creatinine Ratio 6 Glucose 86 Calcium 7.9 L Total Bilirubin 7.70 H AST 600 H ALT 689 H Alkaline Phosphatase 180 H Total Protein 5.1 L Albumin 3.1 L Albumin/Globulin Ratio 1.6 Urine Opiates Screen Presumptive negative Urine Methadone Screen Presumptive negative Ur Barbiturates Screen Presumptive negative Ur Phencyclidine Scrn Presumptive negative Ur Amphetamines Screen Presumptive positive U Benzodiazepines Scrn Presumptive negative Urine Cocaine Screen Presumptive positive U Marijuana (THC) Screen Presumptive negative Drugs of Abuse Note Disclamer - Imaging Ultrasound: report reviewed
[2017-08-15] MEDS: LOVENOX SUB-Q SCH (21:22)
[2017-08-15] MEDS: AMBIEN PO PRN (21:22)
[2017-08-16] MEDS: PERCOCET 5/325 PO PRN ×3 (07:32→18:50)
[2017-08-16] MEDS: ZOFRAN IV PRN ×3 (07:32→18:50)
--- NOTE | 2017-08-16 10:33 | Progress Note ---
Assessment and Plan Assessment and plan: 32-year-old female was presented for nausea and vomiting. CT of the abdomen was unremarkable, patient was due for hepatitis C antibody. Patient's urine is positive for cocaine and amphetamine Hepatitis C infection ? Drug-induced hepatitis Polysubstance abuse; counseled about cessation of using cocaine and amphetamine Recurrent nausea and vomiting Vaginal candidiasis, was given diflucan Homeless ness- healthcare social worker consulted Hyperkalemia, hyponatremia- Resolved - GI consult appreciated; observation, autoimmune workup, if no improvement will consider biopsy DVT prophylaxis - On Lovenox Disposition - Will follow GI recommendation. History Interval history: Patient was seen and evaluated this morning, patient complains nausea. Patient asked for increase dose of pain pills. patient was not in pain and sleeping while I went to the room. Hospitalist Physical - Physical exam Narrative exam: Not in cardiopulmonary distress. The patient appeared well nourished and normally developed. Vital signs as documented. Head exam is unremarkable. No scleral icterus . Neck is without jugular venous distension, thyromegaly, or carotid bruits. Lungs are clear to auscultation. Cardiac exam reveals regular rate and Rhythm. First and second heart sounds normal. No murmurs, rubs or gallops. Abdominal exam reveals normal bowel sounds, no masses, no organomegaly and no aortic enlargement. Extremities are nonedematous and both femoral and pedal pulses are normal. INTERACTIVE DEVELOPER: Alert and oriented 3. No focal weakness. - Constitutional Vitals: Temp Pulse Resp BP Pulse Ox 98.1 F 69 19 99/59 96 08/16/17 07:07 08/16/17 07:07 08/16/17 07:07 08/16/17 07:07 08/16/17 07:07 Results - Labs CBC & Chem 7: 08/13/17 22:58 08/15/17 03:34 Labs: Laboratory Last Values WBC 6.5 K/mm3 (4.5-11.0) 08/13/17 22:58 RBC 5.21 M/mm3 (3.65-5.03) H 08/13/17 22:58 Hgb 15.4 gm/dl (10.1-14.3) H 08/13/17 22:58 Hct 44.5 % (30.3-42.9) H 08/13/17 22:58 MCV 85 fl (79-97) 08/13/17 22:58 MCH 30 pg (28-32) 08/13/17 22:58 MCHC 35 % (30-34) H 08/13/17 22:58 RDW 14.0 % (13.2-15.2) 08/13/17 22:58 Plt Count 188 K/mm3 (140-440) 08/13/17 22:58 Lymph % (Auto) 40.3 % (13.4-35.0) H 08/13/17 22:58 [place] % (Auto) 9.3 % (0.0-7.3) H 08/13/17 22:58 Eos % (Auto) 4.5 % (0.0-4.3) H 08/13/17 22:58 Baso % (Auto) 1.2 % (0.0-1.8) 08/13/17 22:58 Lymph # 2.6 K/mm3 (1.2-5.4) 08/13/17 22:58 [place] # 0.6 K/mm3 (0.0-0.8) 08/13/17 22:58 Eos # 0.3 K/mm3 (0.0-0.4) 08/13/17 22:58 Baso # 0.1 K/mm3 (0.0-0.1) 08/13/17 22:58 Seg Neutrophils % 44.7 % (40.0-70.0) 08/13/17 22:58 Seg Neutrophils # 2.9 K/mm3 (1.8-7.7) 08/13/17 22:58 Sodium 135 mmol/L (137-145) L 08/15/17 03:34 Potassium 4.1 mmol/L (3.6-5.0) 08/15/17 03:34 Chloride 99.7 mmol/L (98-107) 08/15/17 03:34 Carbon Dioxide 26 mmol/L (22-30) 08/15/17 03:34 Anion Gap 13 mmol/L 08/15/17 03:34 BUN 3 mg/dL (7-17) L 08/15/17 03:34 Creatinine 0.5 mg/dL (0.7-1.2) L 08/15/17 03:34 Estimated GFR > 60 ml/min 08/15/17 03:34 BUN/Creatinine Ratio 6 % 08/15/17 03:34 Glucose 86 mg/dL (65-100) 08/15/17 03:34 Calcium 7.9 mg/dL (8.4-10.2) L 08/15/17 03:34 Magnesium 1.90 mg/dL (1.7-2.3) 08/14/17 01:30 Total Bilirubin 7.70 mg/dL (0.1-1.2) H 08/15/17 03:34 Direct Bilirubin 6.3 mg/dL (0-0.2) H 08/14/17 01:30 Indirect Bilirubin 1.9 mg/dL 08/14/17 01:30 AST 600 units/L (5-40) H 08/15/17 03:34 ALT 689 units/L (7-56) H 08/15/17 03:34 Alkaline Phosphatase 180 units/L (35-129) H 08/15/17 03:34 Troponin T < 0.010 ng/mL (0.00-0.029) 08/14/17 04:45 Total Protein 5.1 g/dL (6.3-8.2) L 08/15/17 03:34 Albumin 3.1 g/dL (3.9-5) L 08/15/17 03:34 Albumin/Globulin Ratio 1.6 % 08/15/17 03:34 Lipase 14 units/L (13-60) 08/14/17 01:30 HCG, Qual Negative (Negative) 08/13/17 22:58 Urine Color [place] (Yellow) 08/14/17 02:22 Urine Turbidity Clear (Clear) 08/14/17 02:22 Urine pH 5.0 (5.0-7.0) 08/14/17 02:22 Ur Specific [place] 1.025 (1.003-1.030) 08/14/17 02:22 Urine Protein 30 mg/dl mg/dL (Negative) 08/14/17 02:22 Urine Glucose (UA) Neg mg/dL (Negative) 08/14/17 02:22 Urine Ketones Neg mg/dL (Negative) 08/14/17 02:22 Urine Blood Sm (Negative) 08/14/17 02:22 Urine Nitrite Neg (Negative) 08/14/17 02:22 Ur Reducing Substances Not Reportable 08/14/17 02:22 Urine Bilirubin Mod (Negative) 08/14/17 02:22 Urine Ictotest Positive (Negative) 08/14/17 02:22 Urine Urobilinogen 4.0 mg/dL (<2.0) 08/14/17 02:22 Ur Leukocyte Esterase Neg (Negative) 08/14/17 02:22 Urine WBC (Auto) 4.0 /HPF (0.0-6.0) 08/14/17 02:22 Urine RBC (Auto) 2.0 /HPF (0.0-6.0) 08/14/17 02:22 U Epithel Cells (Auto) 9.0 /HPF (0-13.0) 08/14/17 02:22 Urine Mucus 3+ /HPF 08/14/17 02:22 Urine Opiates Screen Presumptive negative 08/14/17 16:55 Urine Methadone Screen Presumptive negative 08/14/17 16:55 Ur Barbiturates Screen Presumptive negative 08/14/17 16:55 Ur Phencyclidine Scrn Presumptive negative 08/14/17 16:55 Ur Amphetamines Screen Presumptive positive 08/14/17 16:55 U Benzodiazepines Scrn Presumptive negative 08/14/17 16:55 Urine Cocaine Screen Presumptive positive 08/14/17 16:55 U Marijuana (THC) Screen Presumptive negative 08/14/17 16:55 Drugs of Abuse Note Disclamer 08/14/17 16:55 Hepatitis A IgM Ab Non-reactive (NonReactive) 08/14/17 01:30 Hep Bs Antigen Non-reactive (Negative) 08/14/17 01:30 Hep B Core IgM Ab Non-reactive (NonReactive) 08/14/17 01:30 Hepatitis C Antibody Reactive (NonReactive) A 08/14/17 01:30 HIV 1&2 Antibody Rapid Non react (Non React) 08/15/17 13:27 HIV P24 Antigen Non react (Non React) 08/15/17 13:27 - Imaging and Cardiology US - abdomen: report reviewed (contracted gall bladder)
--- NOTE | 2017-08-16 11:05 | Gastroenterology Progress Note ---
Assessment and Plan 1. Acute liver injury 2. Jaundice 3. Hep C Ab + 4. Pruritis -labs stable. suspect acute hepatitis c. rule out other etiologies (work-up/ labs pending). trend liver enzymes and supportive care. RNA levels pending. can consider liver biopsy based on work-up and lab trend. otherwise, supportive care for time being and treatment for hep c as outpatient. recommend social work consult. Subjective Date of service: 08/16/17 Principal diagnosis: jaundice, elevated liver enzymes Interval history: pt seen and examined. c/o nausea and abd discomfort. requesting pain medications. mild pruritis Objective - Constitutional Vitals: Temp Pulse Resp BP Pulse Ox 98.1 F 69 19 99/59 96 08/16/17 07:07 08/16/17 07:07 08/16/17 07:07 08/16/17 07:07 08/16/17 07:07 General appearance: no acute distress - EENT Eyes: scleral icterus - Respiratory Respiratory effort: normal Respiratory: bilateral: CTA - Cardiovascular Rhythm: regular Heart Sounds: Present: S1 & S2 - Gastrointestinal General gastrointestinal: Present: soft, non-tender, non-distended - Neurologic Neurological: alert and oriented x3 - Labs CBC & Chem 7: 08/13/17 22:58 08/15/17 03:34 Labs: Laboratory Results - last 24 hr 08/15/17 13:27 HIV 1&2 Antibody Rapid Non react HIV P24 Antigen Non react - Imaging CT scan: report reviewed Ultrasound: report reviewed
[2017-08-16 12:30] LABS: Alanine Aminotransferase 598 units/L (7-56); Albumin 3.2 g/dL (3.9-5); BUN/Creatinine Ratio 8; Blood Urea Nitrogen 4 mg/dL (7-17); Calcium 8.3 mg/dL (8.4-10.2); Hemolysis Index 6
[2017-08-16] MEDS: AMBIEN PO PRN (21:01)
[2017-08-16] MEDS: LOVENOX SUB-Q SCH (21:01)
[2017-08-16] MEDS: MIRALAX 3350 PO PRN (21:04)
[2017-08-17] MEDS: ZOFRAN IV PRN ×4 (02:44→21:54)
[2017-08-17 06:55] LABS: Alanine Aminotransferase 496 units/L (7-56); Albumin 3.1 g/dL (3.9-5); BUN/Creatinine Ratio 8; Blood Urea Nitrogen 5 mg/dL (7-17); Calcium 8.4 mg/dL (8.4-10.2); Hemolysis Index 6
--- NOTE | 2017-08-17 08:09 | Progress Note ---
Assessment and Plan Assessment and plan: 32-year-old female was presented for nausea and vomiting. CT of the abdomen was unremarkable, patient was due for hepatitis C antibody. Patient's urine is positive for cocaine and amphetamine Hepatitis C infection ? Drug-induced hepatitis Polysubstance abuse; counseled about cessation of using cocaine and amphetamine Recurrent nausea and vomiting Vaginal candidiasis, was given diflucan Homeless ness- social services aide consulted Hyperkalemia, hyponatremia- Resolved - GI consult appreciated; observation, autoimmune workup, if no improvement will consider biopsy DVT prophylaxis - On Lovenox Disposition - GI wants to get the lab results like AMA, PCR to assess the need for liver biopsy. History Interval history: Patient was seen and evaluated this morning, patient complains nausea. Hospitalist Physical - Physical exam Narrative exam: Not in cardiopulmonary distress. The patient appeared well nourished and normally developed. Vital signs as documented. Head exam is unremarkable. No scleral icterus . Neck is without jugular venous distension, thyromegaly, or carotid bruits. Lungs are clear to auscultation. Cardiac exam reveals regular rate and Rhythm. First and second heart sounds normal. No murmurs, rubs or gallops. Abdominal exam reveals normal bowel sounds, no masses, no organomegaly and no aortic enlargement. Extremities are nonedematous and both femoral and pedal pulses are normal. ELECTRICIAN APPRENTICE: Alert and oriented 3. No focal weakness. - Constitutional Vitals: Temp Pulse Resp BP Pulse Ox 98.5 F 58 L 18 103/55 99 08/16/17 19:17 08/16/17 19:17 08/16/17 19:17 08/16/17 19:17 08/16/17 19:17 Results - Labs CBC & Chem 7: 08/13/17 22:58 08/17/17 05:53 Labs: Laboratory Last Values WBC 6.5 K/mm3 (4.5-11.0) 08/13/17 22:58 RBC 5.21 M/mm3 (3.65-5.03) H 08/13/17 22:58 Hgb 15.4 gm/dl (10.1-14.3) H 08/13/17 22:58 Hct 44.5 % (30.3-42.9) H 08/13/17 22:58 MCV 85 fl (79-97) 08/13/17 22:58 MCH 30 pg (28-32) 08/13/17 22:58 MCHC 35 % (30-34) H 08/13/17 22:58 RDW 14.0 % (13.2-15.2) 08/13/17 22:58 Plt Count 188 K/mm3 (140-440) 08/13/17 22:58 Lymph % (Auto) 40.3 % (13.4-35.0) H 08/13/17 22:58 [place] % (Auto) 9.3 % (0.0-7.3) H 08/13/17 22:58 Eos % (Auto) 4.5 % (0.0-4.3) H 08/13/17 22:58 Baso % (Auto) 1.2 % (0.0-1.8) 08/13/17 22:58 Lymph # 2.6 K/mm3 (1.2-5.4) 08/13/17 22:58 [place] # 0.6 K/mm3 (0.0-0.8) 08/13/17 22:58 Eos # 0.3 K/mm3 (0.0-0.4) 08/13/17 22:58 Baso # 0.1 K/mm3 (0.0-0.1) 08/13/17 22:58 Seg Neutrophils % 44.7 % (40.0-70.0) 08/13/17 22:58 Seg Neutrophils # 2.9 K/mm3 (1.8-7.7) 08/13/17 22:58 Sodium 143 mmol/L (137-145) 08/17/17 05:53 Potassium 4.3 mmol/L (3.6-5.0) 08/17/17 05:53 Chloride 104.7 mmol/L (98-107) 08/17/17 05:53 Carbon Dioxide 27 mmol/L (22-30) 08/17/17 05:53 Anion Gap 16 mmol/L 08/17/17 05:53 BUN 5 mg/dL (7-17) L 08/17/17 05:53 Creatinine 0.6 mg/dL (0.7-1.2) L 08/17/17 05:53 Estimated GFR > 60 ml/min 08/17/17 05:53 BUN/Creatinine Ratio 8 % 08/17/17 05:53 Glucose 81 mg/dL (65-100) 08/17/17 05:53 Calcium 8.4 mg/dL (8.4-10.2) 08/17/17 05:53 Magnesium 1.90 mg/dL (1.7-2.3) 08/14/17 01:30 Total Bilirubin 5.90 mg/dL (0.1-1.2) H 08/17/17 05:53 Direct Bilirubin 6.3 mg/dL (0-0.2) H 08/14/17 01:30 Indirect Bilirubin 1.9 mg/dL 08/14/17 01:30 AST 307 units/L (5-40) H 08/17/17 05:53 ALT 496 units/L (7-56) H 08/17/17 05:53 Alkaline Phosphatase 170 units/L (35-129) H 08/17/17 05:53 Troponin T < 0.010 ng/mL (0.00-0.029) 08/14/17 04:45 Total Protein 5.6 g/dL (6.3-8.2) L 08/17/17 05:53 Albumin 3.1 g/dL (3.9-5) L 08/17/17 05:53 Albumin/Globulin Ratio 1.2 % 08/17/17 05:53 Lipase 14 units/L (13-60) 08/14/17 01:30 HCG, Qual Negative (Negative) 08/13/17 22:58 Urine Color [place] (Yellow) 08/14/17 02:22 Urine Turbidity Clear (Clear) 08/14/17 02:22 Urine pH 5.0 (5.0-7.0) 08/14/17 02:22 Ur Specific [place] 1.025 (1.003-1.030) 08/14/17 02:22 Urine Protein 30 mg/dl mg/dL (Negative) 08/14/17 02:22 Urine Glucose (UA) Neg mg/dL (Negative) 08/14/17 02:22 Urine Ketones Neg mg/dL (Negative) 08/14/17 02:22 Urine Blood Sm (Negative) 08/14/17 02:22 Urine Nitrite Neg (Negative) 08/14/17 02:22 Ur Reducing Substances Not Reportable 08/14/17 02:22 Urine Bilirubin Mod (Negative) 08/14/17 02:22 Urine Ictotest Positive (Negative) 08/14/17 02:22 Urine Urobilinogen 4.0 mg/dL (<2.0) 08/14/17 02:22 Ur Leukocyte Esterase Neg (Negative) 08/14/17 02:22 Urine WBC (Auto) 4.0 /HPF (0.0-6.0) 08/14/17 02:22 Urine RBC (Auto) 2.0 /HPF (0.0-6.0) 08/14/17 02:22 U Epithel Cells (Auto) 9.0 /HPF (0-13.0) 08/14/17 02:22 Urine Mucus 3+ /HPF 08/14/17 02:22 Urine Opiates Screen Presumptive negative 08/14/17 16:55 Urine Methadone Screen Presumptive negative 08/14/17 16:55 Ur Barbiturates Screen Presumptive negative 08/14/17 16:55 Ur Phencyclidine Scrn Presumptive negative 08/14/17 16:55 Ur Amphetamines Screen Presumptive positive 08/14/17 16:55 U Benzodiazepines Scrn Presumptive negative 08/14/17 16:55 Urine Cocaine Screen Presumptive positive 08/14/17 16:55 U Marijuana (THC) Screen Presumptive negative 08/14/17 16:55 Drugs of Abuse Note Disclamer 08/14/17 16:55 Hepatitis A IgM Ab Non-reactive (NonReactive) 08/14/17 01:30 Hep Bs Antigen Non-reactive (Negative) 08/14/17 01:30 Hep B Core IgM Ab Non-reactive (NonReactive) 08/14/17 01:30 Hepatitis C Antibody Reactive (NonReactive) A 08/14/17 01:30 HIV 1&2 Antibody Rapid Non react (Non React) 08/15/17 13:27 HIV P24 Antigen Non react (Non React) 08/15/17 13:27
[2017-08-17] MEDS: PERCOCET 5/325 PO PRN ×3 (09:06→21:55)
[2017-08-17 16:02] LABS: Bilirubin,Urine SM (Negative); Blood,Urine NEG (Negative); Color,Urine Amber (Yellow); Mucus,Urine FEW /HPF; Protein,Urine <15 mg/dL mg/dL (Negative)
[2017-08-17 16:09] LABS: Amphetamine Screen,Urine PRESUMPTIVE NEGATIVE; Benzodiazepines Screen,Urine PRESUMPTIVE NEGATIVE; Cannabinoid Screen,Urine PRESUMPTIVE NEGATIVE; Cocaine Screen,Urine PRESUMPTIVE NEGATIVE; Methadone Screen,Urine PRESUMPTIVE NEGATIVE; Opiate Screen,Urine PRESUMPTIVE NEGATIVE
[2017-08-17 16:12] LABS: Ictotest,Urine Positive (Negative)
[2017-08-17] MEDS: AMBIEN PO PRN (21:54)
[2017-08-17] MEDS: LOVENOX SUB-Q SCH (21:55)
[2017-08-18 07:36] LABS: Alanine Aminotransferase 344 units/L (7-56); Albumin 3.2 g/dL (3.9-5); BUN/Creatinine Ratio 12; Blood Urea Nitrogen 7 mg/dL (7-17); Calcium 8.6 mg/dL (8.4-10.2); Hemolysis Index 12
[2017-08-18] MEDS: PERCOCET 5/325 PO PRN ×3 (07:49→21:16)
[2017-08-18] MEDS: ZOFRAN IV PRN ×4 (07:49→21:25)
--- NOTE | 2017-08-18 09:20 | Progress Note ---
Assessment and Plan Assessment and plan: 32-year-old female with past medical history significant for recurrent UTI, depression, since presented to the emergency department complaining of nausea and recurrent vomiting for one week. She is also complaining periumbilical abdominal pain, pressure-like, 7 out of 10, no alleviating or aggravating factors. Patient was not eating because she also had nausea and vomiting. She is also complaining of left-sided substernal chest pain, 7 out of 10 in intensity, sharp, piercing there was no radiation, associated with palpitation, no shortness of breath. On admission the patient had a CT of the abdomen which was unremarkable. Patient was noted to have hepatitis C antibody. GI was consulted although does suspect acute hepatitis C they're recommended to rule out coronary feel a GI workup IS still pending. Liver enzymes continues to trend down and outpatient liver biopsy is recommended. Patient continues to have abdominal pain and per history patient has a positive urine for cocaine and amphetamine although repeat study 3 days later was negative. Acute Liver Injury/Hepatitis C infection * ? Drug-induced hepatitis * Await RNA result prior to discharge * pruritus. Improving * LFTs trended down Polysubstance abuse; counseled about cessation of using cocaine and amphetamine. 15 minutes spent patient verbalized understanding Recurrent nausea and vomiting * No further vomiting. Vaginal candidiasis, was given diflucan Homeless manager social media consulted Hyperkalemia, hyponatremia- Resolved * GI consult appreciated; observation, autoimmune workup, if no improvement will consider biopsy Outpatient. Insomnia * Restoril when necessary DVT prophylaxis - On Lovenox Disposition - GI wants to get the lab results like AMA, PCR to assess the need for liver biopsy. Plan of care discussed with the patient in detail. History Interval history: Patient is seen today for: Abdominal pain. Noted jaundice. Seen and examined at bedside; 24hour events reviewed; nursing staff ; no adverse overnight events reported to me, although patient reports of persistent nausea with some improvement noted today.; Denies any chest pain, vomiting, diarrhea No fever noted blood pressure controlled Hospitalist Physical - Physical exam Narrative exam: VITAL SIGNS: Reviewed. GENERAL: The patient appeared well nourished and normally developed. Vital signs as documented. HEAD: No signs of head trauma. EYES: Pupils are equal. Extraocular motions intact. Anicteric sclera EARS: Hearing grossly intact. MOUTH: Oropharynx is normal. NECK: No adenopathy, no JVD. CHEST: Chest with clear breath sounds bilaterally. No wheezes, rales, or rhonchi. CARDIAC: Regular rate and rhythm. S1 and S2, without murmurs, gallops, or rubs. VASCULAR: No Edema. Peripheral pulses normal and equal in all extremities. ABDOMEN: Soft, without detectable tenderness. No sign of distention. No rebound or guarding, and no masses palpated. Bowel Sounds normal. MUSCULOSKELETAL: Good range of motion of all major joints. Extremities without clubbing, cyanosis or edema. NEUROLOGIC EXAM: Alert and oriented x 3. No focal sensory or strength deficits. Speech normal. Follows commands. PSYCHIATRIC: Mood normal. SKIN: No rash or lesions. - Constitutional Vitals: Temp Pulse Resp BP Pulse Ox 98.3 F 71 16 102/60 96 08/18/17 07:27 08/18/17 07:27 08/18/17 07:27 08/18/17 07:27 08/18/17 07:27 Results - Labs CBC & Chem 7: 08/13/17 22:58 08/18/17 05:43 Labs: Laboratory Last Values WBC 6.5 K/mm3 (4.5-11.0) 08/13/17 22:58 RBC 5.21 M/mm3 (3.65-5.03) H 08/13/17 22:58 Hgb 15.4 gm/dl (10.1-14.3) H 08/13/17 22:58 Hct 44.5 % (30.3-42.9) H 08/13/17 22:58 MCV 85 fl (79-97) 08/13/17 22:58 MCH 30 pg (28-32) 08/13/17 22:58 MCHC 35 % (30-34) H 08/13/17 22:58 RDW 14.0 % (13.2-15.2) 08/13/17 22:58 Plt Count 188 K/mm3 (140-440) 08/13/17 22:58 Lymph % (Auto) 40.3 % (13.4-35.0) H 08/13/17 22:58 [place] % (Auto) 9.3 % (0.0-7.3) H 08/13/17 22:58 Eos % (Auto) 4.5 % (0.0-4.3) H 08/13/17 22:58 Baso % (Auto) 1.2 % (0.0-1.8) 08/13/17 22:58 Lymph # 2.6 K/mm3 (1.2-5.4) 08/13/17 22:58 [place] # 0.6 K/mm3 (0.0-0.8) 08/13/17 22:58 Eos # 0.3 K/mm3 (0.0-0.4) 08/13/17 22:58 Baso # 0.1 K/mm3 (0.0-0.1) 08/13/17 22:58 Seg Neutrophils % 44.7 % (40.0-70.0) 08/13/17 22:58 Seg Neutrophils # 2.9 K/mm3 (1.8-7.7) 08/13/17 22:58 Sodium 139 mmol/L (137-145) 08/18/17 05:43 Potassium 3.9 mmol/L (3.6-5.0) 08/18/17 05:43 Chloride 98.6 mmol/L (98-107) 08/18/17 05:43 Carbon Dioxide 29 mmol/L (22-30) 08/18/17 05:43 Anion Gap 15 mmol/L 08/18/17 05:43 BUN 7 mg/dL (7-17) 08/18/17 05:43 Creatinine 0.6 mg/dL (0.7-1.2) L 08/18/17 05:43 Estimated GFR > 60 ml/min 08/18/17 05:43 BUN/Creatinine Ratio 12 % 08/18/17 05:43 Glucose 97 mg/dL (65-100) 08/18/17 05:43 Calcium 8.6 mg/dL (8.4-10.2) 08/18/17 05:43 Magnesium 1.90 mg/dL (1.7-2.3) 08/14/17 01:30 Total Bilirubin 4.10 mg/dL (0.1-1.2) H 08/18/17 05:43 Direct Bilirubin 6.3 mg/dL (0-0.2) H 08/14/17 01:30 Indirect Bilirubin 1.9 mg/dL 08/14/17 01:30 AST 154 units/L (5-40) H 08/18/17 05:43 ALT 344 units/L (7-56) H 08/18/17 05:43 Alkaline Phosphatase 163 units/L (35-129) H 08/18/17 05:43 Troponin T < 0.010 ng/mL (0.00-0.029) 08/14/17 04:45 Total Protein 5.6 g/dL (6.3-8.2) L 08/18/17 05:43 Albumin 3.2 g/dL (3.9-5) L 08/18/17 05:43 Albumin/Globulin Ratio 1.3 % 08/18/17 05:43 Lipase 14 units/L (13-60) 08/14/17 01:30 HCG, Qual Negative (Negative) 08/13/17 22:58 Urine Color [place] (Yellow) 08/17/17 14:51 Urine Turbidity Clear (Clear) 08/17/17 14:51 Urine pH 5.0 (5.0-7.0) 08/17/17 14:51 Ur Specific [place] 1.018 (1.003-1.030) 08/17/17 14:51 Urine Protein <15 mg/dl mg/dL (Negative) 08/17/17 14:51 Urine Glucose (UA) Neg mg/dL (Negative) 08/17/17 14:51 Urine Ketones Neg mg/dL (Negative) 08/17/17 14:51 Urine Blood Neg (Negative) 08/17/17 14:51 Urine Nitrite Neg (Negative) 08/17/17 14:51 Ur Reducing Substances Not Reportable 08/14/17 02:22 Urine Bilirubin Sm (Negative) 08/17/17 14:51 Urine Ictotest Positive (Negative) 08/17/17 14:51 Urine Urobilinogen 4.0 mg/dL (<2.0) 08/17/17 14:51 Ur Leukocyte Esterase Neg (Negative) 08/17/17 14:51 Urine WBC (Auto) 1.0 /HPF (0.0-6.0) 08/17/17 14:51 Urine RBC (Auto) 1.0 /HPF (0.0-6.0) 08/17/17 14:51 U Epithel Cells (Auto) 9.0 /HPF (0-13.0) 08/14/17 02:22 Urine Mucus Few /HPF 08/17/17 14:51 Urine Opiates Screen Presumptive negative 08/17/17 14:52 Urine Methadone Screen Presumptive negative 08/17/17 14:52 Ur Barbiturates Screen Presumptive negative 08/17/17 14:52 Ur Phencyclidine Scrn Presumptive negative 08/17/17 14:52 Ur Amphetamines Screen Presumptive negative 08/17/17 14:52 U Benzodiazepines Scrn Presumptive negative 08/17/17 14:52 Urine Cocaine Screen Presumptive negative 08/17/17 14:52 U Marijuana (THC) Screen Presumptive negative 08/17/17 14:52 Drugs of Abuse Note Disclamer 08/17/17 14:52 Hepatitis A IgM Ab Non-reactive (NonReactive) 08/14/17 01:30 Hep Bs Antigen Non-reactive (Negative) 08/14/17 01:30 Hep B Core IgM Ab Non-reactive (NonReactive) 08/14/17 01:30 Hepatitis C Antibody Reactive (NonReactive) A 08/14/17 01:30 HIV 1&2 Antibody Rapid Non react (Non React) 08/15/17 13:27 HIV P24 Antigen Non react (Non React) 08/15/17 13:27
[2017-08-18] MEDS ORDERED: RESTORIL PO PRN (15:10)
--- NOTE | 2017-08-18 16:23 | Gastroenterology Progress Note ---
Assessment and Plan 1. acute liver injury - possibly acute hep c; work-up otherwise negative. awaiting RNA and autoimmune serologies. hopefully can be discharged soon. cont supportive care. outpt tx for hep c. Subjective Date of service: 08/18/17 Principal diagnosis: jaundice, elevated liver enzymes Interval history: pt seen and examined. c/o nausea and pruritis. tolerating some po. no new gi complaints otherwise Objective - Constitutional Vitals: Temp Pulse Resp BP Pulse Ox 98.2 F 78 15 98/58 97 08/18/17 14:09 08/18/17 14:09 08/18/17 15:03 08/18/17 14:09 08/18/17 14:09 General appearance: no acute distress - EENT Eyes: scleral icterus - Respiratory Respiratory effort: normal Respiratory: bilateral: CTA - Cardiovascular Rhythm: regular Heart Sounds: Present: S1 & S2 - Gastrointestinal General gastrointestinal: Present: soft, non-tender, non-distended - Neurologic Neurological: alert and oriented x3 - Labs CBC & Chem 7: 08/13/17 22:58 08/18/17 05:43 Labs: Laboratory Results - last 24 hr 08/17/17 08/18/17 14:52 05:43 Sodium 139 Potassium 3.9 Chloride 98.6 Carbon Dioxide 29 Anion Gap 15 BUN 7 Creatinine 0.6 L Estimated GFR > 60 BUN/Creatinine Ratio 12 Glucose 97 Calcium 8.6 Total Bilirubin 4.10 H AST 154 H ALT 344 H Alkaline Phosphatase 163 H Total Protein 5.6 L Albumin 3.2 L Albumin/Globulin Ratio 1.3 Drugs of Abuse Note Disclamer
[2017-08-18] MEDS: LOVENOX SUB-Q SCH (21:16)
[2017-08-18 21:35] LABS: ANA Screen, IFA Negative (Negative)
[2017-08-19 08:42] LABS: Alanine Aminotransferase 261 units/L (7-56); Albumin 3.3 g/dL (3.9-5); BUN/Creatinine Ratio 14; Blood Urea Nitrogen 11 mg/dL (7-17); Calcium 8.9 mg/dL (8.4-10.2); Hemolysis Index 8
[2017-08-19] MEDS: PERCOCET 5/325 PO PRN ×3 (08:56→21:51)
[2017-08-19] MEDS: ZOFRAN IV PRN ×4 (08:57→21:51)
--- NOTE | 2017-08-19 10:27 | Progress Note ---
Assessment and Plan 32-year-old female with past medical history significant for recurrent UTI, depression, since presented to the emergency department complaining of nausea and recurrent vomiting for one week. She is also complaining periumbilical abdominal pain, pressure-like, 7 out of 10, no alleviating or aggravating factors. Patient was not eating because she also had nausea and vomiting. She is also complaining of left-sided substernal chest pain, 7 out of 10 in intensity, sharp, piercing there was no radiation, associated with palpitation, no shortness of breath. On admission the patient had a CT of the abdomen which was unremarkable. Patient was noted to have hepatitis C antibody. GI was consulted although does suspect acute hepatitis C they're recommended to rule out coronary feel a GI workup IS still pending. Liver enzymes continues to trend down and outpatient liver biopsy is recommended. Patient continues to have abdominal pain and per history patient has a positive urine for cocaine and amphetamine although repeat study 3 days later was negative. Acute Liver Injury/Hepatitis C infection ? Drug-inducedhepatitis Await RNA result prior to discharge pruritus. Improving LFTs trended down Polysubstance abuse; counseled about cessation of using cocaine and amphetamine. 15 minutes spent patient verbalized understanding Recurrent nausea and vomiting No further vomiting. Vaginal candidiasis, was given diflucan Homeless social science manager consulted Hyperkalemia, hyponatremia- Resolved GI consult appreciated; observation, autoimmune workup, if no improvement will consider biopsy Outpatient. Insomnia Restoril when necessary DVT prophylaxis - On Lovenox Disposition - GI wants to get the lab results like AMA, PCR to assess the need for liver biopsy. Discussed with GI Subjective Date of service: 08/19/17 Principal diagnosis: jaundice, elevated liver enzymes Interval history: Patient seen and examined. Denies any nausea or vomiting Afebrile. Objective - Exam Narrative Exam: Constitutional: Well-nourished well-developed. In no distress Head: Normocephalic atraumatic Eyes: Pupils are equal round and reactive to light Nose: No enlarged turbinates, no septal deviation. Mouth: Moist mucous membranes. Neck: Supple no thyromegaly. No bruit. No JVD Heart: Regular rate and rhythm, S1-S2 abnormal. No rubs murmurs or gallop Lungs: Clear to auscultation bilaterally no rales or rhonchi Abdomen: Soft, nontender. Bowel sound are present. Extremities: No edema no cyanosis and no clubbing. Neuro: Alert oriented Oriented x3. No focal sensory or motor deficit. Skin: No rashes no hyperemic spots Psychiatry: Euthymic. Calm. - Constitutional Vitals: Vital Signs - 12hr 08/19/17 07:22 Temperature 98.2 F Pulse Rate 56 L Respiratory 15 Rate Blood Pressure 94/50 O2 Sat by Pulse 98 Oximetry - Labs CBC & Chem 7: 08/13/17 22:58 08/19/17 06:31 Labs: Abnormal lab results 08/19/17 Range/Units 06:31 Total Bilirubin 3.10 H (0.1-1.2) mg/dL AST 125 H (5-40) units/L ALT 261 H (7-56) units/L Alkaline Phosphatase 148 H (35-129) units/L Total Protein 5.9 L (6.3-8.2) g/dL Albumin 3.3 L (3.9-5) g/dL
--- NOTE | 2017-08-19 11:52 | Gastroenterology Progress Note ---
<HALEYSCOTT GeeDaniella - Last Filed: 08/19/17 11:53> Assessment and Plan 1.acute liver injury -hepatitis panel positive for hep C -SHAN and AMA negative -LFTs trending down -etiology- most likely due to acute hep C -clinically, pt reports feeling better with no abd pain and nausea improved -tolerating diet -continue supportive care -will order INR for today- if WNL, pt is okay to be d/c per GI standpoint with outpatient clinic follow up for treatment of hep C -will sign off, please call if needed Subjective Date of service: 08/19/17 Principal diagnosis: jaundice, elevated liver enzymes Interval history: Patient resting in bed w/o acute distress. She reports feeling much better today. Admit to some mild continued nausea but states is has significantly improved and is currently tolerating diet. Denies abd pain or signs of bleeding. Objective - Constitutional Vitals: Temp Pulse Resp BP Pulse Ox 98.2 F 56 L 15 94/50 98 08/19/17 07:22 08/19/17 07:22 08/19/17 07:22 08/19/17 07:22 08/19/17 07:22 General appearance: no acute distress - Respiratory Respiratory: bilateral: CTA - Cardiovascular Rhythm: regular Heart Sounds: Present: S1 & S2 - Gastrointestinal General gastrointestinal: Present: soft, non-tender, non-distended, normal bowel sounds - Neurologic Neurological: alert and oriented x3 - Labs CBC & Chem 7: 08/13/17 22:58 08/19/17 06:31 Labs: Laboratory Results - last 24 hr 08/14/17 08/15/17 08/19/17 11:54 13:27 06:31 Sodium 141 Potassium 4.9 D Chloride 100.1 Carbon Dioxide 29 Anion Gap 17 BUN 11 Creatinine 0.8 Estimated GFR > 60 BUN/Creatinine Ratio 14 Glucose 85 Calcium 8.9 Total Bilirubin 3.10 H AST 125 H ALT 261 H Alkaline Phosphatase 148 H Total Protein 5.9 L Albumin 3.3 L Albumin/Globulin Ratio 1.3 SHAN Screen Negative Mitochondria M2 Ab <=20.0 <ZOFIA MADRIGAL - Last Filed: 08/19/17 21:41> Assessment and Plan Patient seen and examined. Agree with note above. Liver enzymes improving. Suspect acute hepatitis C. rest of work up unrevealing. Cont supportive care. can be treated with anti-viral therapy as outpatient (once able to obtain insurance). Social work evaluation as pt is homeless. Will sign off, please call as needed or with questions. Objective - Constitutional Vitals: Temp Pulse Resp BP Pulse Ox 98.3 F 79 16 113/73 97 08/19/17 16:49 08/19/17 16:49 08/19/17 16:49 08/19/17 16:49 08/19/17 16:49 - Labs CBC & Chem 7: 08/13/17 22:58 08/19/17 06:31 Labs: Laboratory Results - last 24 hr 08/14/17 08/19/17 08/19/17 11:54 06:31 12:03 PT 11.7 L INR 0.82 L Sodium 141 Potassium 4.9 D Chloride 100.1 Carbon Dioxide 29 Anion Gap 17 BUN 11 Creatinine 0.8 Estimated GFR > 60 BUN/Creatinine Ratio 14 Glucose 85 Calcium 8.9 Total Bilirubin 3.10 H AST 125 H ALT 261 H Alkaline Phosphatase 148 H Total Protein 5.9 L Albumin 3.3 L Albumin/Globulin Ratio 1.3 Sm (Neves) Antibody <1.0
[2017-08-19] MEDS: MIRALAX 3350 PO PRN (13:04)
[2017-08-19 13:07] LABS: INR 0.82 (0.87-1.13)
[2017-08-19] MEDS: LOVENOX SUB-Q SCH (21:51)
[2017-08-19] MEDS: AMBIEN PO PRN (21:52)
[2017-08-20 05:43] LABS: Hematocrit 39.2 % (30.3-42.9); Mean Corpuscular HGB Conc 33 % (30-34); Mean Corpuscular Hemoglobin 29 pg (28-32); Mean Corpuscular Volume 88 fl (79-97); Platelet Count 236 K/mm3 (140-440); Red Blood Count 4.44 M/mm3 (3.65-5.03); Red Cell Distribution Width 14.5 % (13.2-15.2)
[2017-08-20 06:05] LABS: INR 0.77 (0.87-1.13)
[2017-08-20 06:08] LABS: Alanine Aminotransferase 188 units/L (7-56); Albumin 3.4 g/dL (3.9-5); BUN/Creatinine Ratio 15; Blood Urea Nitrogen 9 mg/dL (7-17); Calcium 8.6 mg/dL (8.4-10.2); Hemolysis Index 9
[2017-08-20 07:11] LABS: Anisocytosis 1+; Band Neutrophils # (Manual) 0.1 K/mm3; Myelocytes # (Manual) 0.1 K/mm3; Total Cells Counted 100
[2017-08-20] MEDS: PERCOCET 5/325 PO PRN (07:41)
[2017-08-20] MEDS: ZOFRAN IV PRN (07:43)
[2017-08-20 08:43] VITALS: BP 111/72
--- NOTE | 2017-08-20 10:20 | Discharge Summary ---
Providers - Providers Date of Admission: 08/14/17 07:10 Attending physician: REG LÓPEZ MD 08/14/17 04:45 Consult to Physician [CONS] Urgent Comment: DR POPE NOTIFIED Consulting Provider: EPIFANIO POPE Physician Instructions: Reason For Exam: elevated lft, + hep C (new diag), n,v abd pain 08/16/17 10:28 Consult to Case Management [CONS] Routine Services Needed at Discharge: Boom Truck Driver Notified:: copy for cm Comment:: HOME LESS Primary care physician: HYDRATION PLANT OPERATOR Hospitalization Condition: Stable Hospital course: 32-year-old female with past medical history significant for recurrent UTI, depression, since presented to the emergency department complaining of nausea and recurrent vomiting for one week. She is also complaining periumbilical abdominal pain, pressure-like, 7 out of 10, no alleviating or aggravating factors. Patient was not eating because she also had nausea and vomiting. She is also complaining of left-sided substernal chest pain, 7 out of 10 in intensity, sharp, piercing there was no radiation, associated with palpitation, no shortness of breath. On admission the patient had a CT of the abdomen which was unremarkable. Patient was noted to have hepatitis C antibody. GI was consulted although does suspect acute hepatitis C they're recommended to rule out acute hepatits c. SHAN AND AMA Were negative and it was agreed tht patients acute liver failure was likely secondary to Hepatitis c. Liver enzymes continues to trend down and outpatient liver biopsy is recommended. Patient continues to have abdominal pain But improving and per history patient has a positive urine for cocaine and amphetamine although repeat study 3 days later was negative. We had extensive discussion about lifestyle modification and expectations at the time of discharge concerning abodominal pain and nausea. she is to follow with the PCP and GI and have repeat studies to show complete resolution in 3-5 days. She must avoid all Hepatotoxic agents including but not limited to alcohol. Discharge Diagnosis Acute Liver Injury Secondary to Hepatitis C infection Hepatitis C Polysubstance abuse Recurrent nausea and vomiting Vaginal candidiasis, Homeless Hyperkalemia Hyponatremia Insomnia Peritoneal Irritation Disposition: - TO HOME OR SELFCARE Time spent for discharge: 35 mins Core Measure Documentation - Palliative Care Palliative Care/ Comfort Measures: Not Applicable - Core Measures Any of the following diagnoses?: none - VTE Discharge Requirements Deep Vein Thrombosis/Pulmonary Embolism Present on Admission: No Exam - Constitutional Vitals: Temp Pulse Resp BP Pulse Ox 98.1 F 89 19 111/72 100 08/20/17 07:22 08/20/17 07:22 08/20/17 07:22 08/20/17 07:22 08/20/17 07:22 Plan Activity: advance as tolerated, fall precautions Diet: regular Special Instructions: record daily BP diary, smoking cessation, other (Must avoid alcohol and tobacco.) Follow up with: PRIMARY CAREMD [Primary Care Provider] - 7 Days ZOFIA MADRIGAL MD [Staff Physician] - 7 Days Prescriptions: Ondansetron [Zofran Odt] 4 mg PO Q8HR #30 tab.rapdis traMADol [Ultram] 50 mg PO Q6HR PRN #14 tablet PRN Reason: Pain
[2017-08-20] MEDS: MIRALAX 3350 PO PRN (11:53)
== END 2017-08-20 12:15 | disposition home or self-care (01) | DRG 441 ==
LOC: ED 22:37 → 3A 08-14 07:10
PROVIDERS: ADMIT Internal Medicine; ATTEND Internal Medicine
DX: K72.00 Acute and subacute hepatic failure without coma (principal); K65.9 Peritonitis, unspecified; B17.10 Acute hepatitis C without hepatic coma; E87.1 Hypo-osmolality and hyponatremia; F17.210 Nicotine dependence, cigarettes, uncomplicated; F15.10 Other stimulant abuse, uncomplicated; E87.6 Hypokalemia; F32.9 Major depressive disorder, single episode, unspecified; B37.3 Candidiasis of vulva and vagina; G47.00 Insomnia, unspecified; F14.10 Cocaine abuse, uncomplicated; Z59.0 Homelessness; Z88.2 Allergy status to sulfonamides; Z71.51 Drug abuse counseling and surveillance of drug abuser; Z87.440 Personal history of urinary (tract) infections
CPT/HCPCS: 36415; 74177; 76705; 80048; 80053; 80074; 80307; 81001; 83520; 83690; 83735; 84100; 84484; 84703; 85007; 85025; 85610; 86038; 86235; 87040; 87086; 87517; 87806; 93005; 93010; 99406; J1644; J1650; J1885; J2270; J2405; J3480; J7030; J7042; Q9967

== ENCOUNTER 2019-04-20 13:17 | Emergency (ER) | payer SELFPAY ==
[2019-04-20] MEDS ORDERED: ONDANSETRON 4 MG/2 ML INJ IV ONE ×2 (13:49→16:25)
[2019-04-20] MEDS ORDERED: KETOROLAC 30 MG/1 ML INJ IV ONE (13:49)
[2019-04-20] MEDS ORDERED: SODIUM CHLORIDE 0.9% 1000 ML 1,000 ML IV ONE ×2 (13:49→15:22)
--- NOTE | 2019-04-20 13:51 | Emergency Department Report ---
ED Abdominal Pain HPI - General Chief Complaint: Abdominal Pain Stated Complaint: ABD PAIN Source: EMS Mode of arrival: Stretcher Limitations: No Limitations - History of Present Illness Initial Comments: Patient is a 34-year-old female that comes to the emergency room complaining of abdominal pain. As she indicates over her suprapubic area. She denies any vaginal bleeding or discharge. She states her last menstrual period was 2 months ago. She is concerned that she is . She endorses nausea and vomiting. She also states she has a questionable past medical history of hepatitis. She states that she had test done but the never came back. Past surgical history is positive for and tubal ligation. Patient admits to cigarettes alcohol and methamphetamine use. On admission vital signs were noted and patient has no fever. She has no tachycardia. Her oxygen sat is 100% on room air. She is hypotensive with her blood pressure mid 80s to 90s. However, the patient is small and has polysubstance history; she is mentating and urinating so I assume that her blood pressure normally runs on the low side. MD Complaint: abdominal pain - Related Data Previous Rx's Medication Instructions Recorded Last Taken Type levoFLOXacin [Levaquin TAB] 500 mg PO QDAY #10 tablet 04/20/19 Unknown Rx Allergies Allergy/AdvReac Type Severity Reaction Status Date / Time Sulfa (Sulfonamide Allergy Rash Verified 08/07/17 23:15 Antibiotics) ED Review of Systems ROS: Stated complaint: ABD PAIN Other details as noted in HPI Comment: All other systems reviewed and negative ED Past Medical Hx - Past Medical History Previous Medical History?: No Hx Congestive Heart Failure: No Hx Diabetes: No Hx Asthma: No Hx COPD: No Additional medical history: kidney pblms - Surgical History Past Surgical History?: Yes Additional Surgical History: x2. tonsillectomy - Family History Family history: no significant - Social History Smoking Status: Current Every Day Smoker Substance Use Type: Methamphetamines - Medications Home Medications: Home Medications Medication Instructions Recorded Confirmed Last Taken Type levoFLOXacin [Levaquin TAB] 500 mg PO QDAY #10 tablet 04/20/19 Unknown Rx ED Physical Exam - General Limitations: No Limitations General appearance: alert, in no apparent distress - Head Head exam: Present: atraumatic, normocephalic - Eye Eye exam: Present: normal appearance - ENT ENT exam: Present: mucous membranes moist - Neck Neck exam: Present: normal inspection - Respiratory Respiratory exam: Present: normal lung sounds bilaterally. Absent: respiratory distress - Cardiovascular Cardiovascular Exam: Present: regular rate, normal rhythm. Absent: systolic murmur, diastolic murmur, rubs, gallop - GI/Abdominal GI/Abdominal exam: Present: soft, normal bowel sounds - Extremities Exam Extremities exam: Present: normal inspection - Back Exam Back exam: Present: normal inspection - Neurological Exam Neurological exam: Present: alert, oriented X3 - Psychiatric Psychiatric exam: Present: normal affect, normal mood - Skin Skin exam: Present: warm, dry, intact, normal color. Absent: rash ED Course Vital Signs 04/20/19 04/20/19 04/20/19 13:23 13:32 13:35 Temperature Pulse Rate 74 Respiratory 14 Rate Blood Pressure 85/52 87/58 85/56 O2 Sat by Pulse Oximetry 04/20/19 04/20/19 04/20/19 13:41 13:45 13:50 Temperature 98.1 F Pulse Rate 64 60 67 Respiratory 19 16 18 Rate Blood Pressure 92/63 87/58 90/57 O2 Sat by Pulse 100 Oximetry ED Medical Decision Making - Lab Data Result diagrams: 04/20/19 13:56 04/20/19 13:56 - Radiology Data Radiology results: report reviewed, image reviewed - Medical Decision Making Labs 04/20/19 04/20/19 04/20/19 13:56 13:56 13:56 WBC 3.3 L RBC 4.70 Hgb 14.1 Hct 41.7 MCV 89 MCH 30 MCHC 34 RDW 13.3 Plt Count 126 L Lymph % (Auto) 33.7 [place] % (Auto) 15.6 H Eos % (Auto) 0.2 Baso % (Auto) 0.5 Lymph # 1.1 L [place] # 0.5 Eos # 0.0 Baso # 0.0 Seg Neutrophils % 50.0 Seg Neutrophils # 1.6 L Sodium 138 Potassium 3.6 Chloride 100.6 Carbon Dioxide 24 Anion Gap 17 BUN 12 Creatinine 1.2 Estimated GFR 51 BUN/Creatinine Ratio 10 Glucose 100 Calcium 8.8 Total Bilirubin 0.20 AST 50 H ALT 87 H Alkaline Phosphatase 92 Total Protein 7.0 Albumin 4.1 Albumin/Globulin Ratio 1.4 HCG, Quant < 2 Urine Color Urine Turbidity Urine pH Ur Specific [place] Urine Protein Urine Glucose (UA) Urine Ketones Urine Blood Urine Nitrite Urine Bilirubin Urine Urobilinogen Ur Leukocyte Esterase Urine WBC (Auto) Urine RBC (Auto) U Epithel Cells (Auto) Urine Bacteria (Auto) Urine Mucus Urine Opiates Screen Urine Methadone Screen Ur Barbiturates Screen Ur Phencyclidine Scrn U Benzodiazepines Scrn Urine Cocaine Screen U Marijuana (THC) Screen 04/20/19 04/20/19 15:46 15:46 WBC RBC Hgb Hct MCV MCH MCHC RDW Plt Count Lymph % (Auto) [place] % (Auto) Eos % (Auto) Baso % (Auto) Lymph # [place] # Eos # Baso # Seg Neutrophils % Seg Neutrophils # Sodium Potassium Chloride Carbon Dioxide Anion Gap BUN Creatinine Estimated GFR BUN/Creatinine Ratio Glucose Calcium Total Bilirubin AST ALT Alkaline Phosphatase Total Protein Albumin Albumin/Globulin Ratio HCG, Quant Urine Color [place] Urine Turbidity Cloudy Urine pH 5.0 Ur Specific [place] 1.036 H Urine Protein 30 mg/dl Urine Glucose (UA) Neg Urine Ketones Neg Urine Blood Neg Urine Nitrite Neg Urine Bilirubin Neg Urine Urobilinogen 2.0 Ur Leukocyte Esterase Neg Urine WBC (Auto) 11.0 H Urine RBC (Auto) 8.0 U Epithel Cells (Auto) 15.0 H Urine Bacteria (Auto) 1+ Urine Mucus 1+ Urine Opiates Screen Presumptive negative Urine Methadone Screen Presumptive negative Ur Barbiturates Screen Presumptive negative Ur Phencyclidine Scrn Presumptive negative U Benzodiazepines Scrn Presumptive negative Urine Cocaine Screen Presumptive negative U Marijuana (THC) Screen Presumptive negative Vital Signs 04/20/19 04/20/19 04/20/19 13:23 13:32 13:35 Temperature Pulse Rate 74 Respiratory 14 Rate Blood Pressure 85/52 87/58 85/56 O2 Sat by Pulse Oximetry 04/20/19 04/20/19 04/20/19 13:41 13:45 13:50 Temperature 98.1 F Pulse Rate 64 60 67 Respiratory 19 16 18 Rate Blood Pressure 92/63 87/58 90/57 O2 Sat by Pulse 100 Oximetry LABS NOTED WBC N NO FEVER Ambulatory Taking PO UA NOTED UDS NOTED NS X 2 L ZOFRAN/ROCEPHIN IV It is been brought to our attention that the patient is wanted by the police. On arrival apparently the EMS reported this to the nurses and PD is to be called when the patient is discharged. Patient has asked on numerous occasions for narcotic medications. She is requesting Lortab or Percocet by name. She is refusing Motrin or Tylenol. Pt has been cleared for d/c and was given rx for levaquin for UTI given her allergy to sulfa. Pt dc with dc poc and follow up instructions. - Differential Diagnosis RO PREG/UTI Critical care attestation.: If time is entered above; I have spent that time in minutes in the direct care of this critically ill patient, excluding procedure time. ED Disposition Clinical Impression: UTI (urinary tract infection), Methamphetamine abuse Disposition: DC-01 TO HOME OR SELFCARE Is pt being admited?: No Does the pt Need Aspirin: No Condition: Stable Instructions: Abdominal Pain (ED) Additional Instructions: STAY WELL HYDRATED MED ORDERED TODAY FOLLOW UP WITH PCP IN 48 HOURS REFERRAL BELOW AVOID DRUGS Prescriptions: levoFLOXacin [Levaquin TAB] 500 mg PO QDAY #10 tablet Referrals: PRIMARY MD DARREL [Primary Care Provider] - 3-5 Days ASHUTOSH MARTINEZ MD [Staff Physician] - 3-5 Days Time of Disposition: 16:27
[2019-04-20 14:18] LABS: Basophils % (Auto) 0.5 % (0.0-1.8); Eosinophils % (Auto) 0.2 % (0.0-4.3); Hematocrit 41.7 % (30.3-42.9); Hemoglobin 14.1 gm/dl (10.1-14.3); Lymphocytes # (Auto) 1.1 K/mm3 (1.2-5.4); Lymphocytes % (Auto) 33.7 % (13.4-35.0); Mean Corpuscular HGB Conc 34 % (30-34); Mean Corpuscular Volume 89 fl (79-97); Monocytes # (Auto) 0.5 K/mm3 (0.0-0.8); Monocytes % (Auto) 15.6 % (0.0-7.3); Platelet Count 126 K/mm3 (140-440); Red Cell Distribution Width 13.3 % (13.2-15.2)
[2019-04-20 14:37] LABS: Albumin 4.1 g/dL (3.9-5); Calcium 8.8 mg/dL (8.4-10.2)
[2019-04-20] MEDS ORDERED: ACETAMINOPHEN 500 MG TAB PO ONE (15:22)
--- NOTE | 2019-04-20 16:03 | XRay Report ---
CHEST 1 VIEW INDICATION: Abdominal Pain UPT. COMPARISON: None. FINDINGS: Support devices: None. Heart: Within normal limits. Pulmonary vasculature: Normal. Lungs/Pleura: No acute air space or interstitial disease. Additional findings: None. IMPRESSION: 1. Normal chest. Signer Name: Jayjay Girard MD Signed: 04/20/2019 3:59 PM Workstation Name: [id number]
[2019-04-20 16:17] LABS: Bacteria,Urine 1+ /HPF (Negative); Bilirubin,Urine NEG (Negative); Blood,Urine NEG (Negative); Color,Urine Amber (Yellow); Mucus,Urine 1+ /HPF
[2019-04-20 16:23] LABS: Benzodiazepines Screen,Urine PRESUMPTIVE NEGATIVE; Cannabinoid Screen,Urine PRESUMPTIVE NEGATIVE; Cocaine Screen,Urine PRESUMPTIVE NEGATIVE; Methadone Screen,Urine PRESUMPTIVE NEGATIVE; Opiate Screen,Urine PRESUMPTIVE NEGATIVE
[2019-04-20] MEDS ORDERED: cefTRIAXone/NS 1 GM/50 ML 1 GM/50 ML BAG IV ONE (16:25)
[2019-04-20] MEDS ORDERED: IBUPROFEN 800 MG TAB PO ONE (16:27)
[2019-04-20 16:38] LABS: Amphetamine Screen,Urine PRESUMPTIVE POSITIVE
[2019-04-20 17:30] VITALS: BP 95/62
== END 2019-04-20 17:30 | disposition home or self-care (01) ==
LOC: ED 13:17
DX: N39.0 Urinary tract infection, site not specified (principal); R11.2 Nausea with vomiting, unspecified; F15.10 Other stimulant abuse, uncomplicated; F17.200 Nicotine dependence, unspecified, uncomplicated; Z98.890 Other specified postprocedural states; Z79.899 Other long term (current) drug therapy; Z88.2 Allergy status to sulfonamides; Z90.89 Acquired absence of other organs
CPT/HCPCS: 36415; 71045; 80053; 80307; 81001; 84702; 85025; 87086; 96361; 96365; 96375; 96376; 99284; J0696; J1885; J2405; J7030